=== PATIENT | female | born 1970 | race Caucasian/White ===

== ENCOUNTER 2019-06-20 09:59 | Outpatient (CLI) | payer OTHER, SELFPAY ==
[2019-06-23 06:05] LABS: H pylori Ag Stool Not Detected (Not Detected)
== END 2019-06-20 10:00 | disposition home or self-care (01) ==
LOC: ANHLAB 10:01
PROVIDERS: PCP Internal Medicine Hematology & Oncology; Visit Provider Internal Medicine Gastroenterology
DX: A04.8 Other specified bacterial intestinal infections (principal)
CPT/HCPCS: 87338

== ENCOUNTER 2024-09-21 20:59 | Emergency (ER) | payer OTHER, SELFPAY ==
--- NOTE | ~2024-09-21 | XR_ITS ---
XR chest 2V Ordering provider: Richy Durán MD History: 53 years Female with . CHEST PAIN x 2 dats . Comparison: None. FINDINGS: MEDIASTINUM: The cardiac silhouette is not enlarged. LUNGS: No infiltrates, effusions or pneumothorax. OTHER: No free air under the diaphragm. Multiple level of loss of volume of the vertebrae most likely chronic. Multilevel degenerative disc disease. Pectus excavating. IMPRESSION: No acute cardiopulmonary pathology. Reviewed, dictated and finalized at location A.
--- OUTSIDE RECORDS SUMMARY | 2024-09-21 21:02 | XMS_ITS | Continuity of Care Document ---
Author Organization [facility] [place] Address [address] [facility] [address] [place] [address] Phone Care Team Providers Care Corporate Responsibility Officer Name Role Phone Dale Carrillo MD, FACS Unavailable Unavailab le Procedures Procedure Date Office/outpatient Visit, Est Corneal Pachymetry Corneal Topography Eye Exam & Treatment Refraction Eye Exam, New Patient Advance Directives Directive Yes / No Effective Date File Name No Information Encounters Encounter Description Practice Location Reason(s) For Visit Diagnoses Date Provider Providers Copied on Encounter Office/outpat ient Visit, Est [facility], [address] [place] [address] [address], [place], [place], [id number], [place] tel:[phone] SEC Kelsey Berrios No Information 0 Gerardo Hunter. [address] [place] [address], [facility] [address], [place], [place], [id number], [place]. tel:[phone] Referring Provider: Nico Martin OD [place], [facility] [address], [place], [address]. tel:[phone] [facility], [address] [place] [address] [address], [place], [place], [id number], [place] tel:[phone] SEC [facility] No Information 0 Martin OD Nico. [address] , [address], [place], [address], [place]. tel:[phone] [facility], [address] [place] [address] [address], [place], [place], [id number], [place] tel:[phone] [facility] No Information [phone] Martin OD Nico. [address] [facility] , [address], [place], [address], [place]. tel:[phone] Family History Family Member Type Diagnosis Age At Onset No Information Payers Payer name Insurance type Covered republican ID Jluis moseley(s) Medicaid [facility] [id number] Social History Type Description Quantity Date Captured Comments Sex Female Smoking Status No Information Chief Complaint And Reason For Visit No Information Reason For Referral Reason For Referral No Information History Of Present Illness Encounter Date Complaint History Of Prese nt Illness No Information Functional Status Date Functional Assessmen t No Information Instructions Date Instruction Additional Infor mation No Information Assessments Type Assessment Date No Information Patient Care Teams Name Effective Dates (start - stop) Status Members No Information
--- OUTSIDE RECORDS SUMMARY | 2024-09-21 21:02 | XMS_ITS | CONTINUITY OF CARE DOCUMENT ---
Author Name elhamroxana rico Address Unknown Organization [facility] Address [address] [facility] [address] [place] [address] Phone [phone] Care Team Providers Care Tool Grinding Technician Name Role Phone Ubaldo Farias MD Unavailable [phone] DALY ORONA MD Unavailable [phone] DALY ORONA MD Unavailable [phone] PROBLEMS Condition Status Date Provider Notes Obesity active Ubaldo Farias MD Preoperative cardiovascular examination active Ubaldo Farias MD Cardiovascular screening active Ubaldo gerardo MD Family history of CAD active Ubaldo Farias MD Former smoker active Ubaldo Farias MD ENCOUNTERS Date Type Provider Location Encounter Diag nosis - In-person encounter Office Visit Ubaldo Farias MD [facility] ObesityPreoperative cardiovascular examinationCardiovascular screeningFamily history of CADFormer smoker VITAL SIGNS Date Observation Value Provider Body Mass Index (Ratio) 40.97 kg/m2 Josephine Farias MD blood pressure, diastolic 78 mm[Hg] Pinky greenLograj blood pressure, systolic 109 mm[Hg] Catalina Kevin respiratory rate E&M 20 /min Shannon Gleason pulse rate 85 /min Shannon Gleason oxygen saturation, oximetry 94 % Shannon Gleason blood pressure, diastolic 78 mm[Hg] Wayne Gleason blood pressure, systolic 109 mm[Hg] She estrada Gleason blood pressure, cuff size regular Sh beckie Gleason weight E&M 235 [lb_av] Shannon Gleason height E&M 63.5 [in_i] Shannon Gleason ALLERGIES Allergy Name Onset Date Reaction Criticality Status TRAMADOL Low Criticality active DEMEROL swelling High Criticality active AZITHROMYCIN High Criticality active PENICILLIN High Criticality active HISTORY OF MEDICATION USE Medication Status Instructions Dates Provider Indications Com ments Latuda 20 mg tablet active Shannon Gleason vilazodone 40 mg tablet active Shannon Gleason Latuda 80 mg tablet active Shannon Gleason clonazepam 0.5 mg tablet active Shannon Gleason SOCIAL HISTORY Date Observation Value Provider social history E&M S moking History: P keyona has never smoked. Ubaldo Farias MD social history reviewed E&M revi ewed - no changes required Ubaldo Farias MD number of grandchildren Ubaldo Farias MD smoking status Never smoker Shannon Gleason INSURANCE PROVIDERS Payer name Policy type / Coverage type [place] red green party ID [employer]ISHA MEDICAID (2) Medicaid [id number] ADVANCE DIRECTIVES Name Date DISCUSSED - NO DECISION MADE TREATMENT PLAN Date Name Performer [id number],S, Ubaldo Barker ra, [place] [id number],CUbaldo ra, MD [id number],S, Ubaldo Barker ra, [place] [id number],SUbaldo ra, MD Cardiology Ubaldo Dunne Cardiology Ubaldo Dunne Cardiology Ubaldo Dunne Cardiology Ubaldo Dunne
--- OUTSIDE RECORDS SUMMARY | 2024-09-21 21:02 | XMS_ITS | Data Portability ---
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 Plan of Treatment Reminders Order Date Submit Date Provider Last Modified By Organization Details Last Modified Time Details Appointments ANY 30 2024 04:00P M JACQUI OG PA-C Not available Not available Not available Lab None recorded. Referral None recorded. Procedures None recorded. Surgeries excision of soft tissue mass (SURG) 2024 025 [facility] (Surgery Sched), [address] [place], [address], 06/19/2024 08:48:39 Imaging None recorded. Medication Orders Bactrim DS 800 mg-160 mg tablet 2024 025 [id number], [address] [place], [place], [id number], 09/04/2024 16:06:24 permethri n 5 % topical cream 2024 025 [id number], [address] [place], [place], [id number], 05/21/2024 17:43:05 cephalexi n 500 mg capsule 2024 025 [id number], [address] [place], [place], [id number], 05/21/2024 17:43:03 Patient TargetsNo targets recorded. Patient Instructions Encounter Date Encounter Id Patient Instructions Last Modified By Organization Details Last Modified Time 05/21/2024 [id number] A healthy lifestyle: care instructions [email or web address] Not available 05/21/2024 17:42:58 Reason for Referral None Reported. Results Created Date Observation Date Name Description Value Unit Range Abnormal Flag Note LastModifiedBy Organization Detail LastModifiedTime 05/24/1905/24/2024 US, lower extre mity, nonva scula r No observ ation record ed. [facility] [address] [facility], [place], [address], 06/05/2024 16:39:03 Result Notes None recorded. Problems Name Problem SNOMED Code Status Onset Date Resolution Date Notes Provider Name and Address Organization Details Recorded Time Derangement of medial meniscus 017478791 Active 2016 Not Available [facility] 3 15:01:32 Pain in right knee Active 2016 Not Available [facility] 3 15:01:32 Kidney stone 55563550 Active 2018 Not Available [facility] 3 15:01:32 Hyperlipidemi a 19359303 Active 2023 JACQUI OG PA-C Attn: Accounting ,[address] [place], [address] , [facility] 4 16:28:31 Osteoarthriti s of knee 635131189 Active Not Available [facility] 3 15:01:32 Calcaneal spur 75078022 Active Not Available [facility] 3 15:01:32 Chronic obstructive pulmonary disease 72999424 Active Not Available [facility] 3 15:01:32 Pain of breast 37199432 Active Not Available [facility] 3 15:01:32 Menorrhagia 343326184 Active Not Available [facility] 3 15:01:32 Candidiasis of vagina 72879931 Active Not Available [facility] 3 15:01:32 Chronic instability of knee 191517102 Active Not Available [facility] 3 15:01:32 Hypertensive disorder 47782987 Active Not Available [facility] 3 15:01:32 Pain in left knee Active Not Available [facility] 3 15:01:32 Skin lesion 85413569 Active Not Available [facility] 3 15:01:32 Chronic diarrhea 658252200 Active Not Available [facility] 3 15:01:32 Knee joint painful on movement 681497927 Active Not Available [facility] 3 15:01:32 Chondromalaci a of patella 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 Active Not Available [facility] 3 15:01:32 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 Not Available [facility] 3 15:01:32 Morbid obesity 012391619 Active Not Available [facility] 3 15:01:32 Diarrhea 07172415 Active Not Available [facility] 3 15:01:32 Paresthesia of upper limb 35999360 Active Not Available [facility] 3 15:01:32 Helicobacter pylori-associ ated gastritis 432506575 Active Not Available [facility] 3 15:01:32 Chronic abdominal pain 563079686 Active 2015 Not Available [facility] 3 15:01:32 Pain in limb 57914066 Active Not Available [facility] 3 15:01:32 Tobacco dependence syndrome 30474865 Active Not Available [facility] 3 15:01:32 Swelling of limb 75191061 Active Not Available [facility] 3 15:01:32 Problem Notes None recorded. Procedures Surgical History Date Name Laterality Status Provider Name and Address Organization Details Recorded Time 06/19/19 25 EXCISION OF SOFT TISSUE MASS (SURG) completed JACQUI OG PA-C Attn: Accounting,[address] [place] [address], [id number], [facility] 07/01/2024 15:07:53 06/19/19 25 EXCISION OF SOFT TISSUE MASS (SURG) completed Fitz Ramos MD [address] [place], [address], [place] [facility] 06/20/2024 15:12:10 01/10/20 24 Date of Last Pap Smear completed Shanna Nevarez [place] [facility] 01/10/2024 11:24:21 05/01/19 24 Gastric Bypass completed [place] Stone [place] [facility] 06/30/2023 11:31:44 04/07/20 22 Date of Last Mammogram [place] 02/13/2023 12:23:53 09/30/19 18 Most Recent Mammogram [place] 01/13/2020 12:12:40 03/13/20 17 Right Arthrocentesis Major Joint completed Fan Thomas MD [address] [place], [address], [place] [facility] 03/13/2017 14:47:18 07/08/19 17 Control Implant Removal completed [place] 07/07/2016 10:36:39 01/07/20 16 Colonoscopy with biopsy completed [place] Stone [place] 05/03/2016 10:54:59 07/09/19 16 Control Implant Insertion [place] Prem [place] 07/09/2015 17:48:54 07/09/19 14 Endometrial Biopsy completed [place] Stone [place] 05/03/2016 10:55:43 04/24/19 08 Other completed Tho Santamaria [place] [facility] 01/14/2016 11:51:58 01/04/19 93 Caesarean Section completed Rosemary Honeycutt [place] 01/04/2017 11:47:08 07/05/18 90 Caesarean Section completed Rosemary Honeycutt [place] [facility] 01/04/2017 11:46:26 Imaging Results None recorded. Procedure Notes None recorded. Medical Equipment None Reported. Allergies Allergen ID Allergen Name Allergen Category Reaction Reaction Severity Criticality Documentation Date Start Date Code Code System Note Provider Name and Address Organization Details Recorded Time [id number] Levaquin medicatio n anaphylax is severe Not available 07/17/2018 24853 2 RxNorm BrittanyCONSTANZA Hickman [place] [facility] 9 14:41:24 181565 Wellbutri n medicatio n anaphylax is rash severe Not available Not available 07/25/2018 49961 RxNorm May Stone [place], [place] [facility] 9 15:22:22 019787 metformin medicatio n Not available Not available Not available 10/12/2018 6809 RxNorm Claudia Cruz [place], [place] [facility] 9 15:24:33 953332 gabapenti n medicatio n other severe Not available 07/02/2020 80950 RxNorm 07/02 pt state s cause d blist er over whole body, cb- a May Stone [place], [place] [facility] 1 13:32:40 31383 Demerol medicatio n anaphylax is severe Not available 06/10/2016 98582 1 RxNorm May Stone [place], [place] [facility] 7 10:58:09 36516 Product containin g penicilli n (product) medicatio n anaphylax is severe Not available 06/10/2016 05517 8001 SNOMED May Stone [place], [place] [facility] 7 10:58:26 71684 erythromy emma medicatio n anaphylax is severe Not available 06/10/2016 4053 RxNorm May Stone [place], [place] [facility] 7 10:59:00 30598 Nexplanon medicatio n diarrhea severe Not available 09/07/2016 07290 08 RxNorm Geeta Rodriguez [place], [place] [facility] 7 11:47:23 Medications Name Sig Start Date Stop Date Status Note LastModified by Organization Details LastModified Time Prescript ion - New 01/28 completed Not Available Not Available Not Available Prescript ion - Prior Authoriza tion Request 01/28 completed Not Available Not Available Not Available multivita min tablet TAKE 2 TABLETS BY MOUTH ONCE DAILY active Not Available Not Available No t Available tetracycl ine 500 mg capsule 06/28 completed Not Available Not Available Not Available fluoxetin e 40 mg capsule 06/29 completed Not Available Not Available Not Available cyclobenz aprine 10 mg tablet TAKE 1 TABLET BY MOUTH TWICE DAILY 01/29 completed Not Available Not Available Not Available methocarb arnaldo 500 mg tablet Take 2 tablets 3 times a day by oral route for 30 days. active Not Available Not Available No t Available lamotrigi ne 150 mg tablet 09/07 completed Not Available Not Available Not Available metformin 500 mg tablet Take 1 tablet twice a day by oral route. 10/16 completed Not Available Not Available Not Available doxepin 50 mg capsule 09/07 completed Not Available Not Available Not Available hydrocodo ne 7.5 mg-ibupro fen 200 mg tablet Take 1 tablet twice a day by oral route as needed for 15 days. 01/04 completed Not Available Not Available Not Available Qvar 80 mcg/actua tion Metered Aerosol oral inhaler Inhale 2 puffs twice a day by inhalati on route. 09/07 completed Not Available Not Available Not Available bupropion HCl SR 150 mg tablet,12 hr sustained -release Take 1 tablet twice a day by oral route. 07/17 completed Not Available Not Available Not Available venlafaxi ne ER 37.5 mg capsule,e xtended release 24 hr Take 1 capsule every day by oral route. 01/28 completed Not Available Not Available Not Available prednison e 10 mg tablet 06/29 completed Not Available Not Available Not Available gabapenti n 600 mg tablet 05/16 completed Not Available Not Available Not Available doxycycli ne hyclate 100 mg capsule Take 1 capsule twice a day by oral route as directed for 7 days. 01/29 completed Not Available Not Available Not Available nicotine 14 mg/24 hr daily transderm al patch Apply 1 patch every day by transder mal route as directed for 30 days. 05/16 completed Not Available Not Available Not Available clindamyc in HCl 300 mg capsule TAKE 2 CAPSULES BY MOUTH TWICE DAILY FOR 10 DAYS 01/29 completed Not Available Not Available Not Available albuterol sulfate 2.5 mg/3 mL (0.083 %) solution for nebulizat ion 09/07 completed Not Available Not Available Not Available trazodone 50 mg tablet 01/28 completed Not Available Not Available Not Available ibuprofen 800 mg tablet TAKE 1 TABLET BY MOUTH TWICE DAILY FOR 10 DAYS 01/29 completed Not Available Not Available Not Available fluconazo le 150 mg tablet Take 1 tablet by oral route for 1 day. 07/02 completed Not Available Not Available Not Available sulfameth oxazole 400 mg-trimet hoprim 80 mg tablet 06/28 completed Not Available Not Available Not Available doxepin 25 mg capsule 10/16 completed Not Available Not Available Not Available methylphe nidate 10 mg tablet active Not Available Not Available No t Available clarithro mycin 500 mg tablet Take 1 tablet twice a day by oral route for 14 days. 09/07 completed Not Available Not Available Not Available hydrocodo ne 5 mg-acetam inophen 325 mg tablet Take 1 tablet every 6 hours by oral route as needed for 5 days. 01/28 completed Not Available Not Available Not Available methylphe nidate 20 mg tablet active Not Available Not Available No t Available Celestone Soluspan 6 mg/mL suspensio n for injection Take 2 mL by injectio n route. 05/16 completed Not Available Not Available Not Available prazosin 1 mg capsule active Not Available Not Available Not Available sucralfat e 1 gram tablet Take 1 tablet 4 times a day by oral route as needed for 30 days. 09/07 completed Not Available Not Available Not Available carbamaze pine ER 100 mg tablet,ex tended release,1 2 hr 01/28 completed Not Available Not Available Not Available naltrexon e 50 mg tablet Take 0.5 tablets twice a day by oral route. 07/17 completed Not Available Not Available Not Available metronida zole 0.75 % (37.5 mg/5 gram) vaginal gel active Not Available Not Available Not Available ondansetr on HCl 4 mg tablet 01/29 completed Not Available Not Available Not Available prednison e 20 mg tablet 12/12 completed Not Available Not Available Not Available clonazepa m 0.5 mg tablet active Not Available Not Available Not Available gabapenti n 400 mg capsule TAKE 2 CAPSULE( S) TWICE A DAY BY ORAL ROUTE DIRECTED FOR PAIN MANAGEME NT active Not Available Not Available No t Available terconazo le 0.8 % vaginal cream Insert 1 applicat orful every day by vaginal route for 3 days. 06/28 completed Not Available Not Available Not Available metronida zole 250 mg tablet 01/12 completed Not Available Not Available Not Available clonazepa m 1 mg tablet 01/12 completed Not Available Not Available Not Available Zithromax Z-Adolfo 250 mg tablet TAKE 2 TABLETS (500 MG) BY ORAL ROUTE ONCE DAILY FOR 1 DAY THEN 1 TABLET (250 MG) BY ORAL ROUTE ONCE DAILY FOR 4 DAYS 2015 active Not Available Not Available Not Avai lable permethri n 5 % topical cream APPLY (THOROUG HLY MASSAGE INTO SKIN FROM HEAD TO SOLES OF FEET) BY TOPICAL ROUTE ONCE LEAVE ON FOR 8-14 HR, THEN REMOVE BY THOROUGH WASHING active Not Available Not Available No t Available penicilli n V potassium 500 mg tablet active Not Available Not Available Not Available metronida zole 500 mg tablet TAKE ONE TABLET BY MOUTH EVERY TWELVE HOURS AFTER MEALS FOR 7 DAYS FOR INFECTIO N 01/29 completed Not Available Not Available Not Available doxepin 10 mg capsule 09/07 completed Not Available Not Available Not Available ciproflox acin 500 mg tablet active Not Available Not Available No t Available sulfameth oxazole 800 mg-trimet hoprim 160 mg tablet TAKE 1 TABLET BY MOUTH TWICE DAILY active Not Available Not Available No t Available omeprazol e 40 mg capsule,d elayed release 01/12 completed Not Available Not Available Not Available tramadol 50 mg tablet Take 1 tablet every 6 hours by oral route. 06/28 completed Not Available Not Available Not Available amitripty line 50 mg tablet active Not Available Not Available No t Available acetamino phen 500 mg tablet TAKE 2 TABLETS BY MOUTH EVERY 8 HOURS active Not Available Not Available No t Available risperido ne 3 mg tablet 01/12 completed Not Available Not Available Not Available triamcino lone acetonide 0.1 % topical cream APPLY TO THE AFFECTED AREA(s) TWICE DAILY EVERY MORNING & EVENING active Not Available Not Available No t Available spironola ctone 25 mg tablet Take 1 tablet every day by oral route. 09/07 completed Not Available Not Available Not Available butalbita l-acetami nophen-ca ffeine 50 mg-325 mg-40 mg tablet Take 1 tablet every day by oral route as directed for 30 days. 04/30 completed Not Available Not Available Not Available lamotrigi ne 25 mg tablet 10/07 /2019 completed Not Available Not Available Not Available ketorolac 10 mg tablet Take 1 tablet every 6 hours by oral route as directed for 5 days. 01/28 completed Not Available Not Available Not Available cyprohept adine 4 mg tablet active Not Available Not Available No t Available risperido ne 2 mg tablet 01/12 completed Not Available Not Available Not Available meloxicam 7.5 mg tablet active Not Available Not Available Not Available oxycodone -acetamin ophen 5 mg-325 mg tablet active Not Available Not Available Not Available amitripty line 25 mg tablet 06/28 completed Not Available Not Available Not Available prednisol one acetate 1 % eye drops,kathy pension INSTILL 1 DROP IN LEFT EYE EVERY DAY 06/28 completed Not Available Not Available Not Available temazepam 15 mg capsule 10/16 completed Not Available Not Available Not Available cyanocoba bishop (vit B-12) 500 mcg tablet TAKE 1 TABLET BY MOUTH ONCE DAILY active Not Available Not Available No t Available tamsulosi n 0.4 mg capsule TAKE 1 CAPSULE BY MOUTH EVERY NIGHT 06/28 completed Not Available Not Available Not Available dicyclomi ne 20 mg tablet Take 1 tablet 3 times a day by oral route. 07/02 completed Not Available Not Available Not Available temazepam 30 mg capsule 01/28 completed Not Available Not Available Not Available carbamaze pine ER 200 mg tablet,ex tended release,1 2 hr 01/28 completed Not Available Not Available Not Available baclofen 10 mg tablet Take 1 tablet 3 times a day by oral route after meals for 30 days. 12/12 completed Not Available Not Available Not Available amlodipin e 10 mg tablet Take 1 tablet every day by oral route for 30 days. 09/07 completed Not Available Not Available Not Available doxycycli ne monohydra te 100 mg capsule 01/28 completed Not Available Not Available Not Available hydrocodo ne 7.5 mg-acetam inophen 325 mg tablet 01/28 completed Not Available Not Available Not Available cephalexi n 500 mg capsule TAKE 1 CAPSULE BY MOUTH EVERY 12 HOURS FOR 7 DAYS active Not Available Not Available No t Available pantopraz ole 40 mg tablet,de layed release 01/12 completed Not Available Not Available Not Available metformin 1,000 mg tablet Take 1 tablet twice a day by oral route. 06/07 completed Not Available Not Available Not Available nystatin 100,000 unit/gram topical cream APPLY TO THE AFFECTED AREA(S) BY TOPICAL ROUTE 2 TIMES PER DAY 06/29 completed Not Available Not Available Not Available calcipotr iene 0.005 % topical cream Apply 2-3 gm to affected area 3-4 times daily as directed . 07/02 completed Not Available Not Available Not Available ranitidin e 150 mg tablet 01/28 completed Not Available Not Available Not Available prednison e 50 mg tablet 01/28 completed Not Available Not Available Not Available hyoscyami ne 0.125 mg sublingua l tablet 01/29 completed Not Available Not Available Not Available promethaz ine 25 mg tablet 04/30 completed Not Available Not Available Not Available nicotine 21 mg/24 hr daily transderm al patch APPLY 1 PATCH DAILY ALTERNAT ING SITE OF APPLICAT ION WITH EACH PATCH 01/12 completed Not Available Not Available Not Available fluoxetin e 10 mg capsule 06/28 completed Not Available Not Available Not Available gabapenti n 300 mg capsule Take 1 capsule 3 times a day by oral route as directed for 30 days. 12/12 completed Not Available Not Available Not Available sertralin e 25 mg tablet active Not Available Not Available Not Available omeprazol e 20 mg capsule,d elayed release Take 1 capsule twice a day by oral route for 14 days. 01/29 completed Not Available Not Available Not Available Replens vaginal gel Insert 1 g twice a day by vaginal route. 09/07 completed Not Available Not Available Not Available bisacodyl 5 mg tablet,de layed release 09/07 completed Not Available Not Available Not Available mupirocin 2 % topical ointment APPLY TO THE AFFECTED AREA OF EACH NOSTRIL TWICE DAILY FOR 7 DAYS active Not Available Not Available No t Available lorazepam 1 mg tablet 09/07 completed Not Available Not Available Not Available ibuprofen 600 mg tablet active Not Available Not Available Not Available polyethyl carlos glycol 3350 17 gram/dose oral powder 01/29 completed Not Available Not Available Not Available levofloxa emma 500 mg tablet Take 1 tablet every 24 hours by oral route after meals for 7 days. 07/17 completed Not Available Not Available Not Available oxycodone -acetamin ophen 7.5 mg-325 mg tablet active Not Available Not Available Not Available scopolami ne 1 mg over 3 days transderm al patch PL[address] 1 PATCH ON THE SKIN BEHIND EAR AT 8 PM THE NIGHT BEFORE SURGERY 01/29 completed Not Available Not Available Not Available methylpre dnisolone 4 mg tablets in a dose pack 05/16 completed Not Available Not Available Not Available Vitamin D2 1,250 mcg (50,000 unit) capsule 06/28 completed Not Available Not Available Not Available Zoloft 100 mg tablet Take 1 tablet every day by oral route. 05/16 completed Psychiat rist Ms Amy jimenez said she is on 100 of zoloft and she is going to stop it and said ok to start venlafax in Not Available Not Available Not Available Cipro 250 mg tablet Take 1 tablet every 12 hours by oral route for 14 days. 09/07 completed Not Available Not Available Not Available oxybutyni n chloride 5 mg tablet active Not Available Not Available Not Available ondansetr on 4 mg disintegr ating tablet 01/12 completed Not Available Not Available Not Available etodolac 500 mg tablet 04/30 completed Not Available Not Available Not Available fluoxetin e 20 mg capsule 06/28 completed Not Available Not Available Not Available sertralin e 50 mg tablet 05/16 completed Not Available Not Available Not Available risperido ne 1 mg tablet 06/28 completed Not Available Not Available Not Available dicyclomi ne 10 mg capsule 01/28 completed Not Available Not Available Not Available lamotrigi ne 100 mg tablet 09/07 completed Not Available Not Available Not Available risperido ne 0.5 mg tablet 01/12 completed Not Available Not Available Not Available naproxen 500 mg tablet Take 1 tablet twice a day by oral route after meals for 30 days. 01/28 completed Not Available Not Available Not Available difloraso ne 0.05 % topical ointment Apply 2-3 gms to affected area(s) 3-4 times daily (1 gm = 1 dime size). 01/12 completed Not Available Not Available Not Available amoxicill in 875 mg-potass ium clavulana te 125 mg tablet 09/07 completed Not Available Not Available Not Available nicotine 7 mg/24 hr daily transderm al patch Apply 1 patch every day by transder mal route around the clock for 30 days. 05/16 completed Not Available Not Available Not Available Ventolin HFA 90 mcg/actua tion aerosol inhaler Inhale 2 puffs every 4 hours by inhalati on route for 30 days. 12/12 completed Not Available Not Available Not Available oxycodone 5 mg tablet 01/29 completed Not Available Not Available Not Available hydroxyzi ne pamoate 25 mg capsule active Not Available Not Available Not Available Benadryl 25 mg capsule Take 1 capsule every 4 hours by oral route. 04/30 completed Not Available Not Available Not Available aripipraz ole 10 mg tablet 07/02 completed Not Available Not Available Not Available nicotine 21mg/24hr -14mg/24h r-7mg/24h r daily transderm patches,s equentl Apply 1 patch every day by transder mal route for 90 days. 09/07 completed Not Available Not Available Not Available cholestyr amine (with sugar) 4 gram oral powder Take 1 scoop twice a day by oral route as needed for 30 days. 09/07 completed Not Available Not Available Not Available nitrofura ntoin monohydra te/macroc rystals 100 mg capsule TAKE 1 CAPSULE BY MOUTH EVERY 12 HOURS active Not Available Not Available No t Available duloxetin e 30 mg capsule,d elayed release 04/30 completed Not Available Not Available Not Available duloxetin e 60 mg capsule,d elayed release active Not Available Not Available Not Available carbamaze pine ER 100 mg capsule,e xtended release [id number] 09/07 completed Not Available Not Available Not Available Lyrica 75 mg capsule Take 1 capsule twice a day by oral route for 30 days. 09/07 completed 4 boxes of sample 75 mg , lyrica with instruct ions and 1 coupon.L [id number] 2. EXP. 12/23/19 22. Not Available Not Available Not Available Lyrica 100 mg capsule TAKE ONE CAPSULE BY MOUTH THREE TIMES DAILY active Not Available Not Available No t Available Soothe (bismuth subsalicy late) 262 mg tablet 06/28 completed Not Available Not Available Not Available aprepitan t 40 mg capsule TAKE 1 CAPSULE BY MOUTH ONCE AT 8PM THE NIGHT BEFORE SURGERY 01/29 completed Not Available Not Available Not Available Oysco 500/D 500 mg-5 mcg (200 unit) tablet 09/07 completed Not Available Not Available Not Available Acid Ramp Service Agent (famotidi ne) 20 mg tablet Take 1 tablet twice a day by oral route as directed for 30 days. 04/30 completed Not Available Not Available Not Available Symbicort 160 mcg-4.5 mcg/actua tion HFA aerosol inhaler INHALE 2 PUFFS BY MOUTH TWICE DAILY active Not Available Not Available No t Available omeprazol e 20 mg tablet,de layed release 09/07 completed Not Available Not Available Not Available Citracal- D3 Petites 200 mg (as citrate)- 6.25 mcg (250 unit) tablet TAKE 2 TABLETS BY MOUTH THREE TIMES DAILY active Not Available Not Available No t Available [place] Calcium 200 mg-Vitami n D3 6.25 mcg (250 unit) tablet TAKE 2 TABLETS BY MOUTH 3 (THREE) TIMES A DAY START POST-HAYLEE DESHAWN 01/29 completed Not Available Not Available Not Available Latuda 40 mg tablet 07/02 completed Not Available Not Available Not Available lurasidon e 80 mg tablet active Not Available Not Available Not Available vilazodon e 40 mg tablet active Not Available Not Available Not Available Nexplanon 68 mg subdermal implant Inject 1 implant by subcutan eous route. 09/07 completed Not Available Not Available Not Available Metamucil Sugar-Samm e (aspartam e) 3.4 gram/5.8 gram oral powder 09/07 completed Not Available Not Available Not Available lurasidon e 20 mg tablet active Not Available Not Available Not Available calcium 600 mg (as carbonate )-vitamin D3 20 mcg (800 unit) tablet Take 1 tablet twice a day by oral route for 30 days. 07/17 completed Not Available Not Available Not Available Fioricet 50 mg-300 mg-40 mg capsule Take 1 capsule 3 times a day by oral route as directed for 10 days. 04/30 completed Not Available Not Available Not Available Latuda 60 mg tablet Take 1 tablet every day by oral route. 06/28 completed Not Available Not Available Not Available Virtussin AC 10 mg-100 mg/5 mL oral liquid 05/16 completed Not Available Not Available Not Available Contrave 8 mg-90 mg tablet,ex tended release Take 2 tablets twice a day by oral route. 12/12 completed Not Available Not Available Not Available Metamucil 3.4 gram/5.4 gram oral powder Take 3.4 g every day by oral route. 09/07 completed Not Available Not Available Not Available Viberzi 75 mg tablet TAKE ONE TABLET BY MOUTH TWO TIMES DAILY 09/07 completed Not Available Not Available Not Available Vitals Date Recorded Body height Body mass index (BMI) Body weight Body temperature Oxygen saturation Oxygen saturation in Arterial blood by Pulse oximetry Heart rate Systolic blood pressure Diastolic blood pressure Provider Name and Address Organization Details Last Updated DateTime 5 161.29 cm 34.8 kg/m2 01652.3 2 g 98 [degF] 95 % 95 % 75 /min 124 mm[Hg] 74 mm[Hg] Nevin Manuel [place] [facility] 5 17:24:59 Date Recorded Body height Respiratory rate Oxygen saturation Oxygen saturation in Arterial blood by Pulse oximetry Heart rate Body temperature Body mass index (BMI) Body weight Systolic blood pressure Diastolic blood pressure Provider Name and Address Organization Details Last Updated DateTime 5 161.29 cm 18 /min 95 % 95 % 62 /min 96.4 [degF] 33.7 kg/m2 16549.1 2 g 109 mm[Hg] 41 mm[Hg] Marky Kellogg [place] [facility] 5 14:30:04 Date Recorded Body height Oxygen saturation Oxygen saturation in Arterial blood by Pulse oximetry Heart rate Respiratory rate Body mass index (BMI) Body weight Systolic blood pressure Diastolic blood pressure Provider Name and Address Organization Details Last Updated DateTime 5 161.29 cm 94 % 94 % 85 /min 18 /min 33.6 kg/m2 04728.6 1 g 113 mm[Hg] 43 mm[Hg] Marky Kellogg MA [facility] 5 10:43:23 Date Recorded Body height Respiratory rate Oxygen saturation Oxygen saturation in Arterial blood by Pulse oximetry Heart rate Body mass index (BMI) Body weight Systolic blood pressure Diastolic blood pressure Provider Name and Address Organization Details Last Updated DateTime 5 161.29 cm 18 /min 93 % 93 % 73 /min 33 kg/m2 12745.9 6 g 123 mm[Hg] 84 mm[Hg] Marky Kellogg MA [facility] 5 11:10:10 Date Recorded Systolic blood pressure Diastolic blood pressure Provider Name and Address Organization Details Last Updated DateTime 09/04/2024 160 mm[Hg] 90 mm[Hg] Shanna Nevarez MA [facility] 09/04/2024 16:22:48 Date Recorded Body height Body mass index (BMI) Body weight Oxygen saturation Oxygen saturation in Arterial blood by Pulse oximetry Heart rate Systolic blood pressure Diastolic blood pressure Provider Name and Address Organization Details Last Updated DateTime 5 161.29 cm 32.6 kg/m2 02422.7 7 g 97 % 97 % 101 /min 158 mm[Hg] 100 mm[Hg] May Stone MA [facility] 5 15:40:09 Social History Question Answer Notes LastModified by Organizat ion Details LastModified Time Tobacco Smoking Status Former Smoker stopped smoking 04/23/2016 ; Nevin Manuel MA [facility], [facility] 01/30/2024 11:14:43 Do You Have An Advance Directive? No Information not available 07/09/2015 Are You Blind Or Do You Have Difficulty Seeing? No Information not available 05/25/2023 Is Blood Transfusion Acceptable In An Emergency? Yes Information not available 07/09/2015 What Is Your Level Of Caffeine Consumption? Occasional Information not available 06/29/2022 How Much Tobacco Do You Chew? None Information not available 07/09/2015 Are You Deaf Or Do You Have Serious Difficulty Hearing? No Information not available 05/25/2023 What Type Of Diet Are You Following? SPECIFIC Information not available 05/25/2023 Which Illicit Or Recreational Drugs Have You Used? Marijuana Information not available 07/02/2020 Education 9 Information no t available 07/09/2015 What Is The Highest Grade Or Level Of School You Have Completed Or The Highest Degree You Have Received? [id number] Information not available 05/25/2023 Live Alone Or With Others? Alone [email or web address] Information not available 07/02/2018 What Was The Date Of Your Most Recent Tobacco Screening? 07/29/2024 Information not available 07/29/2024 How Many Children Do You Have? 2 Brandin @ Age 1 [email or web address] Information not available 01/04/2017 What Is Your Current Pack Years? 10-19packyears Information not available 07/02/2020 Performs Monthly Self-breast Exam? Yes Information not available 07/09/2015 Do You Use Protection During Sex? Always Information not available 07/09/2015 What Is Your Relationship Status? Information not available 07/09/2015 Do You Use Your Seat Belt Or Car Seat Routinely? Yes Information not available 07/02/2020 Seat Belts Used Routinely Yes Information not available 07/09/2015 Are You Sexually Active? Yes Information not available 07/09/2015 Do You Have Smoke And Carbon Monoxide Detectors In Your Home? Yes Information not available 07/02/2020 At What Age Did You Start Smoking Tobacco? 14 Information not available 07/09/2015 Are You Passively Exposed To Smoke? No Information not available 07/02/2020 How Much Tobacco Do You Smoke? No [email or web address] Information not available 01/30/2024 General Stress Level Low Information not available 09/07/2016 Do You Use Sunscreen Routinely? Yes Information not available 07/09/2015 Has Tobacco Cessation Counseling Been Provided? No Information not available 06/29/2022 On What Date Was Tobacco Cessation Counseling Provided? 07/29/2024 Information not available 07/29/2024 How Many Years Have You Smoked Tobacco? 10 Information not available 07/09/2015 Sex: Female Functional Status Question Answer Note LastModified by Organizat ion Details LastModified Time Do you use any illicit or recreational drugs? Yes Information not available 07/02/2020 Do you or have you ever used any other forms of tobacco or nicotine? No Information not available 07/02/2020 What is your level of alcohol consumption? None Information not available 07/09/2015 Do you or have you ever used smokeless tobacco? Never used smokeless tobacco Information not available 01/13/2020 Are you currently employed? No Information not available 07/09/2015 Are you able to care for yourself? Yes Information not available 05/25/2023 What is your occupation? disabled Information not available 07/09/2015 Do you or have you ever used e-cigarettes or vape? Never used electronic cigarettes Information not available 01/13/2020 What is your exercise level? Moderate Information not available 07/09/2015 Mental Status None recorded. Family History Relationship Description Onset Age of this Age Resolved Age Notes LastModified by Organization Details LastModified Time Mother Diabetes mellitus Not available 2016 11:47:59 Mother Myocardial infarction 52 Not available 09/07 11:48:59 Father Malignant neoplasm of lung Not available 2016 11:48:17 Father Myocardial infarction 56 Not available 09/07 11:48:43 Medical History Condition Response Coronary Artery Disease N Kidney Cyst N Blood Diseases N Hyperthyroidism N Blood Transfusion N MRSA N Blood disorders N Emphysema N Blood Clots N COPD N Depression N Pneumonia N Premature N Peripheral Arterial Disease N Edema N TIA N Headaches/Migraines N Anxiety Disorder N Obesity N Infertility N Polyps N Acid Reflux (GERD) N Hematuria N Stroke N Neck Injury N Polio N Hospital Admission other than N Neurologic Disorder N Other Sleep Disorders N Rheumatoid Arthritis N Fibromyalgia N Abdominal Aortic Aneurysm Repair N Kidney Disease N Heart Conditions N Heart Disease/Heart Problems N Hospitalizations N Brain Tumors N Acne N Skin Problems N Eating Disorder N Meningitis N Constipation N Tuberculosis N Cerebral Palsy N Myocardial Infarction N Asthma Y Substance Abuse N Peripheral Vascular Disease N Vertigo N Sleep Disorder N Cirrhosis N Pulmonary Embolism N Chicken Pox N Hematologic Disease N Flomax Use Past or Present N Anxiety/Depression N Thyroid Disease N Colon Cancer N Lung Disease N Glaucoma N Developmental or Behavioral Disorders N Bipolar N Pacemaker N Diverticulitis/Diverticulosis N Orthopedic Problems N Anesthesia Complications N Orthotics N Head Injury/Concussion N Congenital Anomalies N Lynn Bite N Chronic Kidney Disease N Endometriosis N Liver Disease N Schizophrenia N Dialysis N Speech Delay N Chronic Obstructive Pulmonary Disease N Parkinson's Disease N Thyroid Problems N GI Problems N Developmental Delay N Anemia N Multiple Sclerosis N Immune System Disorder N Colon Polyps N Heart Attack (ID) N Diabetes N Cardiomyopathy N Blood Transfusions N Heart Problems/Murmur N Eye Trauma N Congestive Heart Failure (CHF) N Valvular Heart Disease N Hyperlipidemia N Double Vision N Abuse/Domestic Violence N Hepatitis B N Lupus N Epilepsy/Seizures N Reflux/GERD N Aneurysm N Heart Disease N Bronchitis N Pre-Eclampsia N Hypertension N Heart Failure N Other N Gout N High Blood Pressure N Atrial Fibrillation N Kidney Stones N Head Trauma/Injury N Congenital Heart Disease N Spine Problems N Gastrointestinal Disease N Lung Mass N Sinusitis N Obstructive Sleep Apnea N Muscle, Joint, or Bone Problems Y Autoimmune disease N Vision or Eye Problems N Arthritis N Blood Clot N Cancer N Seasonal allergies N Leg or Foot Ulcers N Raynaud's Disease N Aortic Aneurysm N Arrhythmia N Headaches N Heart Problems N Ambloypia N Ear or Hearing Problems N Hyperparathyroidism N Migraines N Artificial Joints N Kidney or Bladder Problems N NSAID Use N Encephalitis N PTSD N Ulcers N Prostate Hypertrophy N Bleeding Disorder N AIDS/HIV N Urinary Tract Infection N Back Problems N Allergies N Atrial Flutter N GERD/Reflux N Hepatitis N Autism Spectrum Disorder (ASD) N Breast Cancer N Hernia N Hypothyroidism N Breast Problem N Genitourinary Disease N Deep Vein Thrombosis N Varicose Veins N Cystic Fibrosis N Hearing Loss N Developmental Problems N Carotid Disease N Vitamin D Deficiency N ADHD N Bladder or Kidney Problems N High Cholesterol N [place] N Valvular Abnormalities N Psychiatric/Mental Health Condition N Organ Transplant N Foot Deformity N Allergies/Hayfever N Dyslipidemia N Hyponatremia N Diabetic Eye Disease N Osteoporosis/Osteopenia N Back Pain N Proteinuria N Mental Illness N Neurological Problems N Ovarian Cancer N Bedwetting N Seizures/Epilepsy N Kidney Failure N Ocular trauma N Diverticulitis N Dementia N Sleep Apnea N Mental Problems N Warfarin Management N Osteoporosis N Gynecological History Statement/Question Response Abnormal Pap N Date of Last Mammogram 04/07/2022 On BCP's at Conception? N STIs/STDs N HPV Vaccine N Most Recent Mammogram 09/29/2017 Age at Menarche 11 Current Control Method Tubal Ligat ion If Post Menopausal, Age at Menopause 44 Sexually Active? Y Menses Monthly No Date of Last Pap Smear 01/10/2024 Sexual Problems? Y LMP Unknown Desired Control Method None Obstetrics History GPAL:G 2 P 2 0 0 2 Type Value Multiple Births 0 Full Term 2 Induced 0 Spontaneous 0 Premature 0 Living 2 Ectopics 0 Total 2 Immunizations Vaccine Type Date Status Note Provider Nam e and Address Organization Details Recorded Time COVID-19, mRNA, LNP-S, PF, 30 mcg/0.3 mL dose 12/01/2020 completed Not Available [facility] 3 15:01:32 COVID-19, mRNA, LNP-S, PF, 30 mcg/0.3 mL dose 12/21/2020 completed Not Available [facility] 3 15:01:32 Past Encounters Encounter ID Performer Location Encounter Start Date Encounter Closed Date Diagnosis/Indication Diagnosis SNOMED-CT Code Diagnosis ICD10 Code Diagnosis Note [id number] Arcelia Manriquez MD [facility] (Adult Med) [address] [place] [address] 34430-083 0 05/16/2014 12:01:22 05/16/2014 17:50:41 Pain in limb 83726735 Tobacco de pendence syndrome 02404060 Swelling of limb 28784969 [id number] Arcelia Manriquez MD [facility] (Adult Med) [address] [place] [address] [id number] 0 11/12/2014 09:42:05 11/12/2014 13:43:28 [id number] Arcelia Manriquez MD [facility] (Adult Med) [address] [place] [address] 68387-669 0 11/12/2014 10:36:32 2014 11:24:41 Osteoarthritis of knee 945997025 Calcaneal spur 47649494 Chronic ob structive pulmonary disease 81037451 Tobacco de pendence syndrome 60351419 [id number] Arcelia Manriquez MD [facility] (Adult Med) [address] [place] [address] [id number] 0 03/25/2015 15:46:06 03/25/2015 18:15:22 Calcaneal spur 34776337 M77.31 M77.32 Chronic ob structive pulmonary disease 05524525 J44.9 Osteoarthr itis of knee 345328924 M17.9 Screening mammography 24 913481 Z12.31 [id number] MD Monet Sullivan (MAJOR ACCOUNT REPRESENTATIVE) [address] [place] [address] [id number] 0 07/09/2015 15:47:04 07/09/2015 17:51:26 Menorrhagia 089909815 N92.0 Family leobardo nning surveillance 667600879 Z30.09 Subcutaneo us contraceptive implant present 231011187 Z30.013 [id number] [facility] [address] [place] [address] [id number] 0 09/10/2015 12:06:31 09/10/2015 13:32:01 Chronic instability of knee 838439583 M23.52 Hypertensive disorder 38 977960 I10 [id number] MD Monet Chakraborty (Adult Med) [address] [place] [address] [id number] 0 10/12/2015 16:43:31 10/12/2015 18:08:49 Pain in left knee 4389129035 84811 M25.562 [id number] [facility] [address] [place] [address] [id number] 0 12/22/2015 15:41:09 12/22/2015 16:41:55 Chronic instability of knee 086249880 M23.52 Chronic ob structive pulmonary disease 19392235 J44.9 Hypertensive disorder 38 947773 I10 Osteoarthr itis of knee 698596502 M17.9 Chronic diarrhea 3314425 09 K52.9 [id number] Fan Thomas MD [facility] [address] [place] [address] 01/14/2016 10:03:52 01/14/2016 13:18:09 Knee joint painful on movement 733252468 M25.562 Chondromal acia of patella 78747254 M22.42 Osteoarthr itis of knee 163438706 M17.12 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 [id number] Arcelia Manriquez MD [facility] (Adult Med) [address] [place] [address] [id number] 0 01/19/2016 15:20:16 01/19/2016 16:42:52 Chronic diarrhea 786999812 K52.9 Chronic ob structive pulmonary disease 44950108 J44.9 Osteoarthr itis of knee 213699118 M17.9 Morbid obesity 685764273 E66.01 [id number] Fe Hamlin MD [facility] [address] [address] 2 01/22/2016 12:12:54 01/22/2016 15:02:26 Diarrhea 06288435 R19.7 Paresthesi a of upper limb 73731734 R20.2 [id number] Arcelia Manriquez MD [facility] (Adult Med) [address] [place] [address] [id number] 0 02/12/2016 09:53:27 02/12/2016 11:19:59 Chronic obstructive pulmonary disease 38904659 J44.9 Chronic in stability of knee 862165573 M23.52 Morbid obesity 896137455 E66.01 Osteoarthr itis of knee 674897726 M17.9 Calcaneal spur 20961204 M77.31 M77.32 Helicobact er pylori-associated gastritis 898073404 B96.81 Tobacco de pendence syndrome 85309814 F17.473 [id number] Arcelia Manriquez MD [facility] (Adult Med) [address] [place] [address] [id number] 0 03/08/2016 10:48:16 03/08/2016 12:57:51 Chronic instability of knee 630534423 M23.52 Chronic ob structive pulmonary disease 13035868 J44.9 Chronic diarrhea 4386876 09 K52.9 Morbid obesity 138623168 E66.01 Osteoarthr itis of knee 798719314 M17.9 Helicobact er pylori-associated gastritis 133849718 B96.81 Tobacco de pendence syndrome 16249268 F17.290 Pain in limb 17174229 M7 9.609 Chronic anxiety 94059048 9 F41.9 [id number] Fe Hamlin MD [facility] (Adult Med) [address] [place] [address] [id number] 0 03/21/2016 16:10:00 03/21/2016 17:49:39 Helicobacter pylori-associated gastritis 542442599 K29.70 Chronic ab dominal pain 651146941 R10.9 [id number] MD Monet Rizo (MAJOR ACCOUNT REPRESENTATIVE) [address] [place] [address] [phone] 0 05/03/2016 10:03:00 05/03/2016 16:43:02 Gynecologic examination 16424773 Z01.419 Screening mammography 24 208293 Z12.31 Vaginal dryness 93046452 N89.8 Bacterial vaginosis 4197 27809 N76.0 Candidiasis of vagina 72 803467 B37.3 Obesity 573093018 E66.9 Excessive growth of facial hair 415614198 L68.2 counseled about possible causes . counseled about side effects of spironolac tone. Counseled patient about laser treatment. She opted spironolac tone. Reduced libido 0203591 R 68.82 Counseled about effect of weight , perimenopa usal age on sexual drive. counseled about weight loss. Since patient stated that vaginal dryness causing discomfort during intercours e and Advised her to use replens. [id number] MD Monet Rizo (MAJOR ACCOUNT REPRESENTATIVE) [address] [place] [address] [id number] 0 06/10/2016 10:20:19 06/10/2016 11:57:03 Night sweats 39173931 R61 COUNSELED THOROUGHLY ABOUT CAUSES AND MANAGEMENT INCLUDING EFFECTS OF HER MEDICATION S.ADVISED HER TO F/U WITH PSYCHIATRI ST TO DISCUSS ABOUT HER MEDICATION S AND ALSO FOR COGNETIVE BEHAVIORAL THERAPY. Reduced libido 9861124 R 68.82 Counseled about effect of weight , perimenopa usal age on sexual drive. counseled about weight loss. Since patient stated that vaginal dryness causing discomfort during intercours e and Advised her to use replens. Morbid obesity 831811795 E66.01 SHE LOST 4 POUNDS. SINCE SHE IS SEEING COLLEGE OR UNIVERSITY FACULTY MEMBER. [id number] MD Monet Sullivan (MAJOR ACCOUNT REPRESENTATIVE) [address] [place] [address] 15057-924 0 07/07/2016 10:11:55 07/08/2016 12:30:10 Removal of subcutaneous contraceptive done 4962401776 33522 Z98.890 Morbid obesity 266307825 E66.01 Obesity 547419886 E66.9 Vitamin D deficiency 347 51514 E55.9 Irritable bowel syndrome with diarrhea 765372876 K58.0 Family leobardo nning surveillance 428408563 Z30.09 Chronic ab dominal pain 986614219 R10.9 Chronic ob structive pulmonary disease 84719011 J44.9 [id number] MD Monet Chakraborty (Adult Med) [address] [place] [address] [id number] 0 08/29/2016 10:55:09 08/29/2016 18:17:56 Chronic instability of knee 789644631 M23.52 Both sides. Morbid obesity 761692537 E66.01 Diet, exercise as tolerated, lose weight , and she is going to consult about her bariatric operation in the future. Mood swings 65218877 R45 .86 Under the care of psychiatrovi frank. Localized swelling, mass and lump, upper limb 936220687 R22.32 From previous iv site, local heating pad, tylenol, expected to heal completly in the future. [id number] MD Monet Rizo (MAJOR ACCOUNT REPRESENTATIVE) [address] [place] [address] [id number] 0 09/07/2016 11:06:24 09/08/2016 16:16:21 Body mass index 40+ - severely obese 082161960 Z68.41 Needs work up for pre-diabet es, diabetes, insulin resistance with primary care physician. Vaginal dryness 31039251 N89.8 Improved and advised to continue the Replens Reduced libido 0315591 R 68.82 Improved after using Replens. Patient states that her and her boyfriend are very happy [id number] MD Monet Chakraborty (Adult Med) [address] [place] [address] [id number] 0 12/12/2016 12:26:19 12/12/2016 14:30:52 Chronic instability of knee 288441049 M23.52 Both sides. Osteoarthr itis of knee 774363344 M17.9 Tobacco de pendence syndrome 34329476 F17.290 Hip joint painful on movement 174278878 M25.209 [id number] [facility] (MAJOR ACCOUNT REPRESENTATIVE) [address] [place] [address] 11509-551 0 01/04/2017 11:12:11 01/04/2017 12:27:36 Polycystic ovaries 39054203 E28.2 counseled about PCOS. Counseled about insulin resistance , effect of insulin on androgens, menstrual periods, estrogen levels and its effect on EMT, breast, metabolic syndrome. Counseled About weight loss, diet and excercise. [id number] Fan Thomas MD [facility] [address] [place] [address] 03/13/2017 13:53:10 03/14/2017 14:57:05 Pain in right knee 8296356085 83826 M25.561 Osteoarthr itis of knee 123454740 M17.11 rec gastric sleeve Medical Staff Credentialing Coordinator consult Derangemen t of medial meniscus 798413737 M23.321 ?? MR R Knee at return [id number] Rola Zamarripa MD [facility] (MAJOR ACCOUNT REPRESENTATIVE) [address] [place] [address] [id number] 0 05/16/2017 10:20:22 05/16/2017 14:14:36 Pain of breast 95443644 N64.4 Severe pain with light touch. Counseled about different cause. Since she has severe pain with light touch - refer to breast surgeon. Advised patient to take OTC ibuprofen. Gynecologi c examination 10255124 Z01.419 Age appropriat e counseling done. Vaginal dryness 36483196 N89.8 Advised to continue the Replens ON DAILY BASIS Obesity 296245847 E66.9 Patient say she saw historic sites supervisor. Counseled About weight loss, diet and excercise. Reduced libido 3043763 R 68.82 Counseled about effect of weight , perimenopa usal age on sexual drive. counseled about weight loss. Since patient stated that vaginal dryness causing discomfort during intercours e and Advised her to use replens. Menopausal flushing 1983 98002 N95.1 Counseled about it. Called her psychiatri st Ms. Amy Jimenez at [facility] and spoke to her myself. As per Ms. Amy Jimenez patient is on zoloft 100 md. D/W Ms. Amy Jimenez about starting venlafaxin e for hot flashes since it interacts with doxepin, clonazepam and zoloft. Ms. Amy Greer said that its ok to start venlafaxin e which help both hot flashes and depression and she say she is stop zoloft and swith doxepin to different medication for insomnia. She also say its ok to give venlafaxin e with clonazepam . She said she will contact the patient and notify of the change. Notified patient. Bacterial vaginosis 4197 34368 N76.0 Counseled about it. Polycystic ovaries 46795 008 E28.2 Will increase dose to 1000 mg PO BID. Increased blood pressure 54885642 R03.0 Advised to f/u with PCP Venereal d isease screening 546777289 Z11.3 Patient refused [id number] Fan Thomas MD [facility] [address] [address] 06/19/2017 14:13:46 06/19/2017 16:38:23 Derangement of medial meniscus 680001993 M23.321 declines injection Osteoarthr itis of knee 484472175 M17.11 Chondromal acia of patella 92273475 M22.42 [id number] Arcelia Manriquez MD [facility] (Adult Med) [address] [place] [address] 69069-663 0 09/29/2017 09:47:04 10/02/2017 11:46:49 Pain in left arm 902402967 M79.602 She clims that she has nerve damage on the left arm, will refer to specialist , neurology referral. Osteoarthr itis of knee 810629577 M17.9 Under the care of her cost specialist . [id number] MD Monet Chakraborty (Adult Med) [address] [place] [address] 49141[address]676 0 10/09/2017 18:01:00 10/10/2017 10:18:04 Acute low back pain 651090911 M54.[address] [facility]. [id number] MD Monet Chakraborty (Adult Med) [address] [place] [address] [id number] 0 10/16/2017 15:03:44 10/17/2017 11:59:51 Irritable bowel syndrome with diarrhea 164976285 K58.0 Patient is instructed to give the stool specimen first before taking metronidaz ole. Go to ER any time for any concern she understood and agreed. Chronic pain syndrome 37 8933378 G89.4 [id number] Fan Thomas MD [facility] [place] [address] 01/08/2018 14:08:38 01/10/2018 17:05:33 Derangement of medial meniscus 734191412 M23.321 declines injection demands TKR; limited indication Consider Scope if brings official MR Report Osteoarthr itis of knee 754256067 M17.11 Declines pain management for meds Pain in right knee 74344 45788 18335 M25.561 Chondromal acia of patella 09204450 M22.42 [id number] MD Monet Rizo (MAJOR ACCOUNT REPRESENTATIVE) [address] [place] [address] 0 01/16/2018 15:40:38 01/16/2018 17:04:42 Morbid obesity 938382355 E66.01 [id number] Rola Zamarripa MD [facility] (MAJOR ACCOUNT REPRESENTATIVE) [address] [place] [address]2706[address] 0 04/02/2018 11:44:17 04/02/2018 17:09:17 Pruritic rash 82768793 L28.2 Since patient say rash started after starting metformin, advised patient to stop metformin. Benadryl for allergic reaction. If rash still persists after stopping metformin will revaluate at that time about restarting metformin. Obese 252744644 E66.9 Counseled About weight loss, diet and excercise. Advised patient to f/u with historic sites supervisor. Notified patient that I do not prescribe weight loss pills and she need to f/u with PCP and historic sites supervisor. [id number] [facility] [address] [place] [address] 04/09/2018 11:33:06 04/10/2018 10:00:21 Abdominal pain 97018758 R10.9 Advised r to gp to Er any times for any concern, she understood and agreed. Knee pain 31313591 M23.5 1 M25.562 Got injections in the joint from her orthopedic . Pain of le ft hip joint 2493747531 49341 M25.552 Declines to have orthopedic referral. Pain of hip region 36755 002 M25.559 M25.551 Chronic anxiety 74302522 9 F41.9 Unstable emotion, declines to go to behavior health clinic. [id number] MD [facility] (MAJOR ACCOUNT REPRESENTATIVE) [address] [place] [address] 0 04/30/2018 16:11:44 05/01/2018 13:09:40 Morbid obesity 655545029 E66.01 Family leobardo nning surveillance 207583731 Z30.09 Chronic ob structive pulmonary disease 88720557 J44.9 [id number] MD Monet Chakraborty (Adult Med) [address] [place] [address]81[address]207 0 06/07/2018 14:16:53 06/08/2018 12:23:57 Kidney stone 78400884 N20.0 [id number] MD Monet Rizo (MAJOR ACCOUNT REPRESENTATIVE) [address] [place] [address] 06832-055 0 07/02/2018 11:11:50 07/02/2018 13:35:24 Gynecologic examination 36069705 Z01.419 Age appropriat e counseling done. Venereal d isease screening 350616486 Z11.3 Patient refused BLOOD WORK. Menopausal flushing 1984 89137 N95.1 Counseled about it. Patient on venlafaxin e. Conseled about increasing the dose. She said she has appointmen t with her psychiatri st and she will talk to her psychiatri st about increasing dose. Night sweats 84877507 R6 1 COUNSELED THOROUGHLY ABOUT CAUSES AND MANAGEMENT INCLUDING EFFECTS OF HER MEDICATION S.ADVISED HER TO F/U WITH PSYCHIATRI ST TO DISCUSS ABOUT HER MEDICATION S AND ALSO FOR COGNETIVE BEHAVIORAL THERAPY. Screening mammography 24 167532 Z12.31 Right uppe r quadrant pain 498028477 R10.11 Secondary to severe RUQ pain , Patient to ER. 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 [id number] MD Monet Sullivan (MAJOR ACCOUNT REPRESENTATIVE) [address] [place] [address] 93870-328 0 07/25/2018 14:54:44 07/27/2018 12:16:34 Screening mammography 80892933 Z12.31 [id number] MD Monet Sullivan (MAJOR ACCOUNT REPRESENTATIVE) [address] [place] [address]35[address] 0 09/06/2018 10:41:00 09/06/2018 14:05:18 Morbid obesity 768622395 E66.01 [id number] MD Monet Sullivan (MAJOR ACCOUNT REPRESENTATIVE) [address] [place] [address] 48386[address] 0 10/12/2018 15:01:19 10/16/2018 10:40:39 [id number] MD Monet Sullivan (MAJOR ACCOUNT REPRESENTATIVE) [address] [place] [address]33[address] 0 11/20/2018 10:29:07 11/22/2018 12:53:06 [id number] MD Monet Chakraborty (Adult Med) [address] [place] [address]6662-179 0 11/28/2018 15:31:27 11/29/2018 10:47:50 Pain of right shoulder joint 7770775693 6737685 M25.511 Pain ful , on narcotic pain med from Er,. Also explain toher about policy of narcotic prescripti on : contract, drug screening and less one week supply. Her 2 girls went in rest room with her, so will change drug screening to blood test. Chronic cholecystitis 20 993300 K81.1 Under the care of hr surgeon. Morbid obesity 738107529 E66.01 Diet, exercise as tolerated, lose weight , and she is going to consult about her bariatric operation in the future. [id number] MD Monet Chakraborty (Adult Med) [address] [place] [address] 58285-763 0 12/13/2018 17:08:27 12/14/2018 11:50:56 Pain of right shoulder joint 3782367037 2712512 M25.511 Pain ful , on narcotic pain med from Er,. Also explain toher about policy of narcotic prescripti on : contract, drug screening and less one week supply. Her 2 girls went in rest room with her, so will change drug screening to blood test. [id number] MD Monet Sullivan (MAJOR ACCOUNT REPRESENTATIVE) [address] [place] [address] 96827-411 0 12/21/2018 10:35:35 12/21/2018 14:13:09 Weight maintenance regimen 82451394 Z71.3 7 b weight loss since 11/28/2018 ssm form filled out and faxed to [facility] [id number] MD Monet Sullivan (MAJOR ACCOUNT REPRESENTATIVE) [address] [place] [address] 0 01/04/2019 10:04:34 01/07/2019 12:28:45 Weight maintenance regimen 73709951 Z71.3 ssm form filled out and faxed to [facility] [id number] MD Monet Chakraborty (Adult Med) [address] [place] [address] 11457[address]772 0 01/28/2019 15:11:46 01/29/2019 09:48:31 Morbid obesity 293992140 E66.01 Diet, exercise as tolerated, lose weight , and she is going to consult about her bariatric operation in the future., has lost about 30 pounds since 2017. No medical contraindi cation for bariatric operation, Surgeon Dr. Fitch office informed, [phone]. However, she has seen her WARD ATTENDANT for monitoring her weight all along, will contact Dr. Clemente Thompson for this issue to clarify. [id number] MD [facility] (MAJOR ACCOUNT REPRESENTATIVE) [address] [place] [address] 79775-504 0 02/08/2019 10:36:02 02/12/2019 10:59:26 [id number] MD Monet Sullivan (MAJOR ACCOUNT REPRESENTATIVE) [address] [place] [address] 31102[address]585 0 03/07/2019 11:49:19 03/08/2019 11:52:13 [id number] MD [facility] (Adult Med) [address] [place] [address] 97202[address]243 0 09/05/2019 08:31:57 09/06/2019 06:40:29 Nausea and vomiting 49931530 R11.2 Discussed with patient, She stated that she has gall bladder issue which has been advised by her surgeon to be operated, she preferes to go to [facility], she agreed to go to ER of [facility] today. [id number] [facility] [address] [place] [address] 13974-790 0 01/08/2020 08:11:21 01/16/2020 09:45:56 Swelling of lower leg 302951238 R22.42 Discussed with patient., she agreed to go to closer ER TO BE CHECKED OUT., TODAY. Chest pain 20564829 R07. 9 sHE AGREED TO GO TO CLOSER ER TODAY. [id number] MD Monet Sullivan (MAJOR ACCOUNT REPRESENTATIVE) [address] [place] [address] 88430-240 0 01/13/2020 08:00:06 01/14/2020 06:40:47 Candidiasis of vagina 04067823 B37.3 Screening mammography 24 768623 Z12.31 Exposure t o sexually transmissible disorder 651051507 Z20.2 Morbid obesity 997065815 E66.01 Menopausal syndrome 1237 95894 N95.9 [id number] Arcelia Manriquez MD [facility] (Adult Med) [address] [place] [address] 37998-170 0 05/19/2020 08:23:45 05/20/2020 11:50:05 Infection of skin 860159538 L08.9 Pain of right calf 49815 37580 555719 M79.661 Discussed with patient, will refill gabapentin , a;so advised par=adalgisa t to go to ER any time for any concern, she agreed. [id number] MD Mnoet Sullivan (MAJOR ACCOUNT REPRESENTATIVE) [address] [place] [address] 08545[address]916 0 07/02/2020 08:41:02 07/03/2020 09:05:29 Acute urinary tract infection 368346492 N39.0 Exposure t o sexually transmissible disorder 573539892 Z20.2 Morbid obesity 612317127 E66.01 Chronic ob structive pulmonary disease 12880790 J44.9 Screening for malignant neoplasm of breast 489493085 Z12.39 [id number] MD Monet Chakraborty (Adult Med) [address] [place] [address] 61139[address]785 0 06/28/2021 14:36:12 06/29/2021 10:44:15 Urinary tract infectious disease 66258678 N39.0 REcovered after being treatd at Urgent care, no symptomes now. Itching of skin 86164608 0 L29.9 Superficia l old light brownish scars on thre back, she wants to try some topica crea s and agreed for the dermatolog ist referral, phone , address and name provided. [id number] MD [facility] [address] [place] [address] 68729[address]626 0 12/09/2021 11:43:54 12/10/2021 14:08:45 Cellulitis of skin of back 471588078 L03.312 Discussed with patient, she agreed to hold off her psy med and discuss with her psychiatri st for this issue, and mean time to try empirical abs Screening for malignant neoplasm of colon 168731008 Z12.11 She agreed, Screening mammography 24 091074 Z12.31 She agreed for the mammogram. [id number] MD [facility] [address] [place] [address] 37043[address]923 0 06/29/2022 16:44:08 07/05/2022 17:19:24 Morbid obesity 336002136 E66.01 Diet, exercise as tolerated, lose weight , and she is going to consult about her bariatric operation in the future., has lost about 30 pounds since 2017. No medical contraindi cation for bariatric operation, Surgeon Dr. Fitch office informed, . However, she has seen her WARD ATTENDANT for monitoring her weight all along, will contact Dr. Clemente Thompson for this issue to clarify. As 06-30-22, her weight is 232.12 pounds and HT 5 ft 3.5 inch. BMI is 40.5 Screening for malignant neoplasm of cervix 661269923 Z12.4 Will refer to her WARD ATTENDANT. [id number] Arcelia Manriquez MD [facility] (Adult Med) [address] [place] [address] 19038-213 0 07/28/2022 12:12:41 08/01/2022 12:10:02 Morbid obesity 926994879 E66.01 Diet, exercise as tolerated, lose weight , and she is going to consult about her bariatric operation in the future., has lost about 30 pounds since 2017. No medical contraindi cation for bariatric operation, Surgeon Dr. Fitch office informed, . However, she has seen her WARD ATTENDANT for monitoring her weight all along, will contact Dr. Clemente Thompson for this issue to clarify. As 06-30-22, her weight is 232.12 pounds and HT 5 ft 3.5 inch. BMI is 40.5 As 07-28-22. Weight 231.8 with BMI is 40.4.Needs chest x ray PFT and cardiac clearnce. was told from [facility]. [id number] Arcelia Manriquez MD [facility] (Adult Med) [address] [place] [address] 25106-575 0 05/25/2023 17:08:07 05/31/2023 13:57:13 Screening mammography 58816161 Z12.31 She agreed for the mammogram. Helicobact er pylori gastrointestinal tract infection 074726837 B96.81 he said that she has been treated foe H. Pylori infection, before the bariatric operation, was treated with clindamyci n, doxycyclin e, and metronidaz ole. , Will re-test it , if positive then will treat it, if negative mare not treat it. Morbid obesity 630888915 E66.01 Diet, exercise as tolerated, lose weight , and she is going to consult about her bariatric operation in the future., has lost about 30 pounds since 2017. No medical contraindi cation for bariatric operation, Surgeon Dr. Fitch office informed, . However, she has seen her WARD ATTENDANT for monitoring her weight all along, will contact Dr. Clemente Thompson for this issue to clarify. As 06-30-22, her weight is 232.12 pounds and HT 5 ft 3.5 inch. BMI is 40.5 As 07-28-22. Weight 231.8 with BMI is 40.4.Needs chest x ray PFT and cardiac clearnce. was told from [facility]. As today 05-25-23, She lost about 24 lb since bariatric operation. at [facility]. [id number] MD Monet Max (Adult Med) [address] [place] [address]49[address] 0 01/10/2024 11:11:46 01/12/2024 11:49:42 Gynecologic examination 59956090 Z01.419 Nuswab sample takenPap sample taken Depression screening 171 799132 Z13.31 PHQ9- Negative (0 out of 27) Mental hea lth screening 633373769 Z13.39 GAD7- Negative (2 out of 21) Obesity 477396897 E66.8 BMI 36.1 Skin lesion 03741901 L98 .9 Discussed with patient to start triamcinol one BID to affected areas [id number] MD Monet Plasencia (Adult Med) [address] [place] [address] 75918-991 0 01/30/2024 10:55:27 02/13/2024 11:00:05 Skin lesion 32468726 L98.9 Discussed with patient to c/w triamcinol one BID to affected areasCultu re of lesion on back takenDerm referral given today Adult heal th examination 099001998 Z00.00 Routine labs - will contact patient with results Screening for malignant neoplasm of breast 272866358 Z12.39 Mammogram ordered - will contact patient with results Influenza vaccination declined 176180202 Z28.21 Depression screening 171 954738 Z13.31 PHQ9- Negative (0 out of 27) Mental hea lth screening 588422949 Z13.39 GAD7- Negative (4 out of 21) Obesity 689376931 E66.81 2 BMI 35 Advised decreased portion sizes, good food choices, limited eating out or fast food and eliminate soda and juice from diet. Advised physical activity daily and offered encouragem ent to continue with positive changes. [id number] MD Monet Plasencia (Adult Med) [address] [place] [address]19[address]811 0 05/21/2024 17:10:31 05/22/2024 15:30:26 Infection caused by Staphylococcus aureus 614551284 A49.01 Start cephalexin 500mg BID x 7 days Exposure to scabies 1626 460115 8164174 Z20.7 Possible exposure to scabiesSta rt permethrin 5% topical cream Obesity 175155490 E66.9 BMI 34.8 Advised decreased portion sizes, good food choices, limited eating out or fast food and eliminate soda and juice from diet. Advised physical activity daily and offered encouragem ent to continue with positive changes. Depression screening 171 070806 Z13.31 PHQ9- Negative (3 out of 27) Mental hea lth screening 840998982 Z13.39 GAD7- Negative (1 out of 21) [id number] Fitz Ramos MD [facility] [address] [place] [address] 06/17/2024 13:46:38 06/18/2024 10:45:34 Mass of soft tissue 840528008 R22.9 discussed with patient the procedure of excision of the left thigh mass. Discussed with her the procedure in layman's terms as well as the risks, complicati ons, alternativ es, and likely outcomes including there would be a scar. The patient understand s this like to proceed. We will perform this under local anesthesia . The patient understand s this as well. [id number] Fitz Ramos MD [facility] [address] [place] [address] 07/02/2024 10:33:42 07/02/2024 12:33:22 Postoperative visit 285069802 Z48.89 discussed benign path with patient in layman's terms, the patient understand s, sutures removed without difficulty . , discussed further wound care with patient layman's terms, we will see patient back on a p.r.n. basis [id number] Fitz Ramos MD [facility] [address] [place] [address] 07/29/2024 10:56:28 07/29/2024 12:31:45 Skin lesion 12859569 L98.9 [id number] Rain Alonso MD [facility] (Adult Med) [address] [place] [address] [place] [address] 09/04/2024 14:52:51 09/05/2024 11:21:44 Abscess of nose 1727552 J34.0 Will stop Mupirocin since it is not helping. Lesion is not draining. Will have her try heat and oral antibiotic . Advised her to discontinu e antibiotic and seek medical attention if develops any skin lesions or lesions on mucous membranes. Elevated blood-pressure reading without diagnosis of hypertension 451756421 R03.0 Blood pressure elevated today but no history of hypertensi on and last blood pressures in the office have been normal. Avoid decongesta nts and ibuprofen. No history of elevated blood pressure. No signs of end organ damage. She has not been feeling well and was very worried about what was going on with her health, and it is likely that anxiety caused her blood pressure to go up. She has a blood pressure cuff at home so she will check her pressure over the next two days and call on Monday to let us know what it is. If it is not back to normal readings we will determine the next step to take. Health Concerns Section Related Observation LastModified by Organization Detai ls LastModified Time None Recorded Concern Status LastModified by Organization Details LastModified Time None Recorded Advance Directives Directive N: Payers Encounter Date Sequence Insurance Name Policy Number Policy Mojica Covered Member ID Mojica Member ID Guarantor Name 05/21/[address] [facility] ON OR AFTER 10/22/20 (MEDICAID REPLACEMENT - HMO) Estela San [id number] Estela San 06/17/[address] [facility] ON OR AFTER 10/22/20 (MEDICAID REPLACEMENT - HMO) Estela San [id number] Estela San 07/02/[address] [facility] ON OR AFTER 10/22/20 (MEDICAID REPLACEMENT - HMO) Estela San [id number] Estela San 07/29/[address] [facility] ON OR AFTER 10/22/20 (MEDICAID REPLACEMENT - HMO) Estela San [id number] Estela San 09/04/[address] [facility] ON OR AFTER 10/22/20 (MEDICAID REPLACEMENT - HMO) Estela San [id number] Estela San Notes Date Note Type Note Provider Name and Address Organization Details Recorded Time 05/21/2024 text/html 53-year-old female here complaining of rash all over skin. Patient states she has been dealing with this for many years and has not been able to get relief. Patient states she has gone to urgent care and emergency rooms and has been given multiple creams that have not worked. Patient states medication given to her from her last visit with me helped dry up the rash but it did not go away completely. Patient does not know what else to do wants to be sent to the hospital and admitted so she can get treatment at the hospital. Patient states that nobody else in her household has a rash but herself. JACQUI OG PA-C Attn: [address] [place], [address], [facility] 05/21/2024 17:57:28 06/17/2024 text/html patient is a 53-year-old female with 1-2 year history of a mass of the left thigh. Patient says the mass is painful and has gotten larger. Patient describes pain is mild and stabbing quality and radiates into the surrounding tissue. Patient says it recently has been more painful. Patient denies any fever chills or bleeding or discharge Fitz Ramos MD [address], [place], [address], [facility] 06/17/2024 14:54:17 07/02/2024 text/html Patient has foll ow up of excision mass from left thigh. Patient is doing well not having problems postoperatively. Patient is happy with the result, discussed the pathology with patient that this was a benign fat necrosis lesion and she understands that. Fitz Ramos MD [address], [place], [address], [facility] 07/02/2024 10:51:51 07/29/2024 text/html patient is statu s post excision of a mass from the left thigh. Patient has an area of eschar on the medial aspect of the wound which is bothersome for her. Patient denies any fever chills or bleeding or discharge. MD Ralph Araujo, [place], [address], [facility] 07/29/2024 11:17:20 09/04/2024 text/html sick visit, has has Staph before, recently had a sinus infection, symptoms started two and a half months ago, cough and spitting up green sputum, runny nose, Dr. Og gave her an antibiotic and steroid, that resolved but symptoms have now returned, last two days went to urgent care, first doctor told her she had MRSA but did not examine her, was given Mupirocin, went back and they looked in nose, said she did not have MRSA but had a sore in nose, still spitting up green, no cough, no drainage, sore in nose that hurts on right side, no history of hypertension, no chest pain, no shortness of breath, no headaches Rain Alonso MD Attn: Accounting[address] [place], [address], [facility] 09/04/2024 18:26:31 OBGyn Episode Ob Episode Information Episode Created Date Number of Fetuses Patient Bloodtype Patient rh Status Prepregnancy Weight lbs Domestic Partner Domestic Partner Phone Father Name Statistical Engineer Status 07/09/19 16 1 CLOSED Fetus Data First Name Last Name Admitted to NICU Weight (g) Sex Living Outcome Pediatric Complications Fetus ID Race Codes Race Delivery Type 3486.98 85 M Full Term [id number] Arnold Calculation Initial Arnold Date Initial Exam Date Initial Exam Provider Initial Ultrasound Date Last Menstrual Period Date Ultra Sound Weeks Gestation 0 Eighteen To Twenty Week Arnold Update Ultra Sound Date Fundal Height At Umbil Quickening Date Ultra Sound Latest Weeks Gestation Final Arnold Confirmed By Final Arnold Confirmed Date Final Arnold Date Ultra Sound Latest Days Gestation 0 0 Menstrual History Last Menstrual Date Menses Monthly On Bcp Conception Prior Menses Frequency Hcg Plus Date Menarche Onset Age Delivery Information Delivery Date Delivery Type Labor Anesthesia Weeks Gestation Incision Type Labor Labor Length Hrs Delivered By Post Complications Tubal Sterilization Discharge Date Comments 5 Regional- idural [address] @ 1years old Drowned Discharge Information Feeding Method Contraceptive Method Maternal HG B and HCT Levels Ob Episode Information Episode Created Date Number of Fetuses Patient Bloodtype Patient rh Status Prepregnancy Weight lbs Domestic Partner Domestic Partner Phone Father Name Statistical Engineer Status 07/09/19 16 1 CLOSED Fetus Data First Name Last Name Admitted to NICU Weight (g) Sex Living Outcome Pediatric Complications Fetus ID Race Codes Race Delivery Type 3401.94 F Full Term [id number] Arnold Calculation Initial Arnold Date Initial Exam Date Initial Exam Provider Initial Ultrasound Date Last Menstrual Period Date Ultra Sound Weeks Gestation 0 Eighteen To Twenty Week Arnold Update Ultra Sound Date Fundal Height At Umbil Quickening Date Ultra Sound Latest Weeks Gestation Final Arnold Confirmed By Final Arnold Confirmed Date Final Arnold Date Ultra Sound Latest Days Gestation 0 0 Menstrual History Last Menstrual Date Menses Monthly On Bcp Conception Prior Menses Frequency Hcg Plus Date Menarche Onset Age Delivery Information Delivery Date Delivery Type Labor Anesthesia Weeks Gestation Incision Type Labor Labor Length Hrs Delivered By Post Complications Tubal Sterilization Discharge Date Comments 0 Regional-Ep idural 40 false Mouna Discharge Information Feeding Method Contraceptive Method Maternal HG B and HCT Levels
--- OUTSIDE RECORDS SUMMARY | 2024-09-21 21:02 | XMS_ITS | Clinical Summary ---
Author Organization [facility] Address [address] [place] [address] Phone Care Team Providers Care Haulage Boss Name Role Phone Arcelia Manriquez MD Primary Care Provider [phone] Allergies Active Allergy Reactions Criticality Noted Date Comments Levofloxacin In D5w Anaphylaxis High 10/23/2018 Swelling, trouble breathing, rash Meperidine Hives Metformin Rash 10/10/2018 Was on metformin for weight loss Penicillins Anaphylaxis 06/30/2015 Bupropion Hcl Anaphylaxis Medium 10/23/2018 Swelling, trouble breathing Azithromycin Anaphylaxis 06/30/2015 Medications clonazePAM (KLONOPIN) 0.5 MG TabletIndication s:Anxiety Take 0.5 mg by mouth 2 times daily. 0 8 Active temazepam (RESTORIL) 30 MG CapsuleIndicatio ns:Insomnia, unspecified type Take 30 mg by mouth nightly as needed. 0 8 Active DULoxetine (CYMBALTA) [address] ParticlesIndicat ions:Anxiety Take 1 Cap by mouth daily. 90 Cap 8 Active Additional Information Patient not taking.Reported on 10/09/2018 metFORMIN (GLUCOPHAGE) 1000 MG Tablet Take 1,000 mg by mouth 2 times daily (with meals). Active venlafaxine (EFFEXOR-XR) 37.5 MG CAPSULE SR 24 HR Take 37.5 mg by mouth daily. 9 Active ergocalciferol (VITAMIN D) 61782 UNIT Capsule Take 50,000 Units by mouth once a week. 9 Active dicyclomine (BENTYL) 10 MG Capsule Take 1 Cap by mouth every 6 hours as needed for Other (abdominal pain and diarrhea). 30 Cap 9 Active Additional Information Patient not taking.Reported on 11/26/2018 carBAMazepine (TEGRETOL) 200 MG Tablet Take 100 mg by mouth daily. Pt takes 100 mg daily, in the morning Active raNITIdine (ZANTAC) 150 MG TabletIndication s:Pharyngoesopha geal dysphagia Take 1 Tab by mouth 2 times daily. 180 Tab 9 Active Bismuth 262 MG Chewable Tablet Take 3 tablets four times a day for 10 days 120 Tab 9 Active Additional Information Patient not taking.Reported on 11/26/2018 metroNIDAZOLE (FLAGYL) 250 MG Tablet Take 1.5 tablets four times a day for 10 days 60 Tab 9 Active Additional Information Patient not taking.Reported on 11/26/2018 Active Problems Problem Noted Date Diagnosed Date Biliary dyskinesia 11/26/2018 Anxiety 02/13/2018 Menopausal hot flushes 02/13/2018 Night sweats 02/13/2018 Obesity, Class III, BMI 40-49.9 (morbid obesity) 02/13/2018 Insomnia 02/13/2018 Osteoarthritis of multiple joints 02/13/2018 Gastritis without bleeding 02/13/2018 Family History Medical History Relation Name Comments Cancer Father lung Stroke Father Cancer Paternal Grandmother bone Cancer Sister pancreatic Relation Name Status Comments Father Mother Paternal Grandmother Sister Social History Tobacco Use Types Packs/Day Years Used Date Smoking Tobacco: Former Cigarettes Q uit: 10/10/2017 Smokeless Tobacco: Never Alcohol Use Standard Drinks/Week Comments Not Currently 0 (1 standard drink = 0.6 oz pur e alcohol) PHQ-2 Answer Date Recorded PHQ-2 Score 1 12/27/2018 Sexually Active Control Partners Comments Not Currently Comments No Sex and Gender Information Value Date Recorded Sex Assigned at Not on file Legal Sex Female 9:35 PM CDT Gender Identity Not on file Sexual Orientation Not on file Last Filed Vital Signs Vital Sign Reading Time Taken Comments Blood Pressure 122/78 11/26/2018 8:26 AM CDT Pulse 59 11/26/2018 8:26 AM CDT Temperature 36.5 C (97.7 F) 11/26/2018 8:26 AM CDT Respiratory Rate 18 11/26/2018 8:26 AM CDT Oxygen Saturation 96% 11/26/2018 8:26 AM CDT Inhaled Oxygen Concentration - - Weight 100.7 kg (222 lb) 11/26/2018 8:26 AM CDT Height 161.3 cm (5' 3.5) 11/26/2018 8:26 AM CDT Body Mass Index 38.71 11/26/2018 8:26 AM CDT Plan of Treatment Health Maintenance Due Date Last Done Comments TdaP Immunization 1968 Hepatitis B Immunization (1 of 3 - 19+ 3-dose series) 12/09/1987 Colonoscopy 2013 Colorectal Cancer Screening 2013 Cologuard 2018 Immunochemical Fecal Occult Blood 2018 Pneumococcal Immunization (5 0+ years) (1 of 1 - PCV) 2018 Zoster Immunization (1 of 2) 2018 Influenza Immunization (#1) 2023 SARS-COV-2 Immunization (3 - season) 2023 12/21/2020, 12/01/2020 Respiratory Syncytial Virus (RSV) Immunization (Adult) (1 - 1-dose 75+ series) 12/09/2043 Meningococcal Immunization (ACWY) Aged Out No longer eligible b ased on patient's age to complete this topic Rotavirus Immunization Aged Out No lo nger eligible based on patient's age to complete this topic Insurance MEDICAID [facility] Care Teams Haulage Boss Relationship Specialty Start Date End Date Arcelia Manriquez MD [address] [place] [address] PCP - General Geriatric Medicine 10/24/18
--- OUTSIDE RECORDS SUMMARY | 2024-09-21 21:02 | XMS_ITS | Clinical Summary ---
Author Organization [facility] Address [address] [place] [id number] Care Team Providers Care Sample Card Maker Name Role Phone Alfredo Og Primary Care Provider [phone] Allergies Active Allergy Reactions Criticality Noted Date Comments Azithromycin Anaphylaxis High Bupropion Anaphylaxis,Swelling,Headache High 2018 Etonogestrel Diarrhea Low 05/10/2023 Levofloxacin Anaphylaxis High 09/21/2019 Meperidine Anaphylaxis,Hives,Swelling,Rash High Metformin Diarrhea,Rash,Nausea & Vomiting Medium 08/24 Penicillins Anaphylaxis High Tramadol Itching,Vomiting Low 02/14/2019 Medications clonazePAM (KlonoPIN) 0.5 mg tablet Take 1 tablet (0.5 mg total) by mouth 2 (two) times a day as needed for anxiety 08/22/2019 Active lurasidone (LATUDA) 20 mg tablet 07/05/2022 Active vilazodone (VIIBRYD) 40 mg tablet Take 1 tablet (40 mg total) by mouth nightly 03/21/2023 Active ibuprofen (ADVIL,MOTRIN) 800 mg tablet Take 1 tablet (800 mg total) by mouth 2 (two) times a day Active vitamin E acetate (VITAMIN E ORAL) Take by mouth every morning Active ondansetron (ZOFRAN) 4 mg tablet Take 1 tablet (4 mg total) by mouth every 8 (eight) hours as needed for nausea or vomiting Start post-surgery 20 tablet 2 04/19/2023 Active acetaminophen (TYLENOL) 500 mg tablet Take 2 tablets (1,000 mg total) by mouth every 8 (eight) hours 05/02/2023 Active lurasidone (LATUDA) 80 mg tablet 04/26/2023 Active cyanocobalamin (Vitamin B-12) 500 mcg tablet Take 1 tablet (500 mcg total) by mouth daily Start post Surgery 90 tablet 3 05/02/2024 05/02/19 26 Active calcium citrate-vitamin D3 200 mg-6.25 mcg (250 unit) tablet Take 2 tablets by mouth 3 (three) times a day Start post-surgery 540 tablet 3 07/29/2024 07/30/19 26 Active multivitamin with minerals tabletIndicatio ns:Vitamin Deficiency Prevention Take 2 tablets by mouth daily 60 tablet 11 07/30/2024 07/31/19 26 Active Active Problems Problem Noted Date Diagnosed Date Status post bariatric surgery 08/01/2023 KASEY (obstructive sleep apnea) 05/01/2023 Other specified anxiety disorders 06/17/2022 Biliary colic 09/09/2019 Overview (09/09/2019): Added automatically from request for surgery [id number] RUQ abdominal pain 09/06/2019 Assessment & Plan (09/07/2019 11:13 AM CDT): Presenting with acute on chronic RUQ abdominal pain, nausea, and inability to tolerate PO intake. Symptoms first started 2 years ago and she follows with outpatient GI specialist at [facility] and was diagnosed with bilary dyskinesia after HIDA scan showed gallbladder EF of 0%. Prior outpatient plan was for cholecystectomy with her gastric sleeve procedure, which has yet to be scheduled due to current COVID pandemic -Now presenting with 2 days of persistent RUQ pain and nausea that has not improved. Reports she is only able to keep popsickles down -Labs with normal LFTs, lipase, and lactate -RUQ US without gallstones, gallbladder wall thickening, or fluid -CT abdomen/pelvis without acute process or findings to explain her pain -Patient is upset that her surgeries have been delayed and reports she just wants her gallbladder out as she is tired of dealing with the intermittent pain -Plan to minimize opioids and advance diet as tolerated. -HIDA scan on 09/05, 1. Poor gallbladder contractile response to sincalide infusion with abnormally decreased gallbladder ejection fraction. This is nonspecific, but can be seen in the setting of biliary dyskinesia or chronic cholecystitis. 2. Otherwise normal biliary imaging study. - [place] SURGERY to see today. Assessment & Plan (09/06/2019 6:22 AM CDT): Presenting with acute on chronic RUQ abdominal pain, nausea, and inability to tolerate PO intake. Symptoms first started 2 years ago and she follows with outpatient GI specialist at [facility] and was diagnosed with bilary dyskinesia after HIDA scan showed gallbladder EF of 0%. Prior outpatient plan was for cholecystectomy with her gastric sleeve procedure, which has yet to be scheduled due to current COVID pandemic -Now presenting with 2 days of persistent RUQ pain and nausea that has not improved. Reports she is only able to keep popsickles down -Labs with normal LFTs, lipase, and lactate -RUQ US without gallstones, gallbladder wall thickening, or fluid -CT abdomen/pelvis without acute process or findings to explain her pain -Patient is upset that her surgeries have been delayed and reports she just wants her gallbladder out as she is tired of dealing with the intermittent pain -Will ensure no cardiac source of pain with troponin and EKG -Plan to minimize opioids and advance diet as tolerated -Consider GI consult in AM & possible repeat HIDA scan vs trying PO challenge and discharging home with outpatient general surgery and GI follow-up History of hepatitis C 09/06/2019 Assessment & Plan (09/07/2019 11:13 AM CDT): S/p treatment and has had negative viral load x2 Assessment & Plan (09/06/2019 6:23 AM CDT): S/p treatment and has had negative viral load x2 Biliary dyskinesia 11/26/2018 Gastritis without bleeding 02/13/2018 Assessment & Plan (09/07/2019 11:11 AM CDT): EGD in 10/2018 with gastritis and positive for H.pylori, now s/p treatment and was due for repeat EGD as part of her bariatric surgery evaluation, but has not been completed yet -Previously on ranitidine but states she has been off this for some time now -Will start pantoprazole 40 mg qday Assessment & Plan (09/06/2019 6:16 AM CDT): EGD in 10/2018 with gastritis and positive for H.pylori, now s/p treatment and was due for repeat EGD as part of her bariatric surgery evaluation, but has not been completed yet -Previously on ranitidine but states she has been off this for some time now -Will start pantoprazole 40 mg qday Anxiety with depression 02/13/2018 Assessment & Plan (09/07/2019 11:11 AM CDT): Chart history of bipolar depression with prior suicide attempt with attempting to take excessive seroquel and clonopin in 2016 -Currently reports no SI/HI -Continue home fluoxetine 20 mg qday (recently started due to loss of 2 friends during pandemic) -Risperdal was also on medication list, but she reports she no longer takes this Assessment & Plan (09/06/2019 6:14 AM CDT): Chart history of bipolar depression with prior suicide attempt with attempting to take excessive seroquel and clonopin in 2016 -Currently reports no SI/HI -Continue home fluoxetine 20 mg qday (recently started due to loss of 2 friends during pandemic) -Risperdal was also on medication list, but she reports she no longer takes this Acute bronchitis 04/24/2017 Bronchospasm 04/24/2017 Resolved Problems Problem Noted Date Diagnosed Date Resolved Date Morbid obesity 06/09/2022 08/01/2023 Overview (06/09/2022): Added automatically from request for surgery [id number] BMI 37.0-37.9, adult 02/13/2018 04/2 023 Assessment & Plan (09/07/2019 11:11 AM CDT): Follows with [facility] weight management clinic and is being considered for gastric sleeve operation. -MIS called this AM, prob as out pt. Assessment & Plan (09/06/2019 6:16 AM CDT): Follows with [facility] weight management clinic and is being considered for gastric sleeve operation Encounters Date Type Department Care Team Description 07/29/2024 [facility] - [facility] Minimally Invasive Surgery [address], [place] [address] Mark Ch MD Medical Question/Miscellaneous from Last 3 Months Surgical History Surgery Date Site/Laterality Comments KNEE ARTHROSCOPY 04/24/2009 - 04/23/2010 Left CORNEAL TRANSPLANT 05/25/2019 - 06/22/2019 Left ESOPHAGOGASTRODUODENOSCOPY 04/24/2018 - 04/23/2019 SECTION 04/24/1989 - 04/23/1990 SECTION 04/24/1992 - 04/23/1993 LAPAROSCOPIC CHOLECYSTECTOMY 04/24/2019 - 04/23/2020 Medical History Medical History Date Comments Anxiety disorder Depression Hypertension Obesity Sleep apnea Family History Medical History Relation Name Comments Asthma Other 1 Family history of Asthma; Cancer Other 2 Family history of Cancer; Diabetes Other 3 Family history of Diabetes mellitus; Hypertension Other 4 Family history of Hypertension; Stroke Other 5 Family history of Stroke; Other Other 6 Family history of Tuberculosis; Heart disease Other 7 Family history of Heart disease; Anesthesia problems Neg Hx Malig Hyperthermia Neg Hx Pseudochol deficiency Neg Hx Relation Name Status Comments Other 1 Other 2 Other 3 Other 4 Other 5 Other 6 Other 7 Social History Tobacco Use Types Packs/Day Years Used Date Smoking Tobacco: Former Cigarettes 1 34.8 1 - 02/2019 Smokeless Tobacco: Never Alcohol Use Standard Drinks/Week Comments No 0 (1 standard drink = 0.6 oz pur e alcohol) AUDIT-C Answer Date Recorded Q1: How often do you have a drink containing alcohol? Never 05/01/2023 Q2: How many drinks containi ng alcohol do you have on a typical day when you are drinking? Patient does not drink Q3: How often do you have si x or more drinks on one occasion? Never 05/01/2023 Personal Safety Answer Date Recorded Have you ever been in or are you currently in a harmful physical or emotional relationship or is someone making you feel afraid or unsafe? Denies 05/01/2023 Comments No Sex and Gender Information Value Date Recorded Sex Assigned at Not on file Legal Sex Female 9:27 AM SPA MANAGER Gender Identity Female 05/18/2022 10:51 AM SPA MANAGER Sexual Orientation Straight 05/18/2022 10 :51 AM SPA MANAGER Obstetrics History Last Filed Vital Signs Vital Sign Reading Time Taken Comments Blood Pressure 151/102 05/10/2023 9:36 AM SPA MANAGER Pulse 109 05/10/2023 9:36 AM SPA MANAGER Temperature 36.6 C (97.9 F) 05/10/2023 9:36 AM SPA MANAGER Respiratory Rate 20 05/02/2023 3:16 AM SPA MANAGER Oxygen Saturation 97% 05/10/2023 9:36 AM SPA MANAGER Inhaled Oxygen Concentration - - Weight 112.8 kg (248 lb 9.6 oz) 05/10/2023 9:36 AM SPA MANAGER Height 160 cm (5' 3) 05/10/2023 9:36 AM SPA MANAGER Body Mass Index 44.04 05/10/2023 9:36 AM SPA MANAGER Plan of Treatment Health Maintenance Due Date Last Done Comments Breast Cancer Screening-Mammogram 1968 Cervical Cancer Screening 1968 Colon Cancer Screening-Colonoscopy 1968 Depression Screening 1968 DTaP/Tdap/Td Vaccine (1 - Tdap) 12/09/1979 Hepatitis B Screening 1986 Regular Well Visit/Exam 18-64 1986 Pneumococcal vaccine <65 (1 of 2 - PCV) 12/09/1987 Lung Cancer Screening 2018 Zoster Vaccine (1 of 2) 2018 Covid-19 Vaccine (3 - season) 2023, 12/01/2020 Influenza Vaccine (Season Ended) 2024 Hepatitis C Screening Completed 09/06/2019 Medical Devices Implanted Type Area A And P Technician Device Identifier Shelf Expiration Date Model / Serial / Lot [employer] Biological Bariatric Peristrip Non Crosslinked Bovine Pericardium For Endo Sayra Thin [id number] - Sn/A - [id number] Implanted:Qty: 1 on 05/01/2023 by Mark Ch MD at [facility] Other - see comments N/A: Stomach [employer] 08/25/2025 [id number] ATHN / N/A / [id number]- [id number] Description:Staple reinforce ment [employer] Bariatric Peristrip Non Crosslinked Bovine Pericardium For Endo Sayra Thin [id number] - Sn/A - [id number] Implanted:Qty: 1 on 05/01/2023 by Mark Ch MD at [facility] Other - see comments N/A: Stomach [employer] 08/25/2025 [id number] ATHN / N/A / [id number]- [id number] Description:Staple reinforce ment Insurance [facility] Advance Directives For more information, please contact: [phone] * Full Code (Latest Code Status on File) Date Activated Date Inactivated Comments 05/01/2023 12:20 PM 05/02/2023 5:48 PM * Full Code Date Activated Date Inactivated Comments 09/06/2019 6:12 AM 09/07/2019 8:55 PM Care Teams Sample Card Maker Relationship Specialty Start Date End Date Alfredo Og PA [address] [place] [address] PCP - General Physician Assistant Professor Of Forestry 03/07/24
--- OUTSIDE RECORDS SUMMARY | 2024-09-21 21:02 | XMS_ITS | Referral Summary ---
Author Organization [facility] Address [address] [place] [address] Care Team Providers Care Automotive Service Professional Name Role Phone Alfredo Og Primary Care Provider [phone] Encounters Date Type Department Care Team Description 07/29/2024 Telephone [facility] ([facility] - [facility] Minimally Invasive Surgery [address] [place] [address] [facility] 12th [address], [place] [address] Mark Ch MD Medical Question/Miscellaneous from Last 3 Months Allergies Active Allergy Reactions Criticality Noted Date [...] (09/09/2019): Added automatically from request for surgery [id number] RUQ abdominal pain 09/06/2019 Assessment & Plan (09/07/2019 11:13 AM CDT): Presenting with acute on chronic RUQ abdominal pain, nausea, and inability to tolerate PO intake. Symptoms first started 2 years ago and she follows with outpatient GI specialist at [facility] and was diagnosed with bilary dyskinesia [...] 2. Otherwise normal biliary imaging study. - [place] SURGERY to see today. Assessment & Plan (09/06/2019 6:22 AM CDT): Presenting with acute on chronic RUQ abdominal pain, nausea, and inability to tolerate PO intake. Symptoms first started 2 years ago and she follows with outpatient GI specialist at [facility] and was diagnosed with bilary dyskinesia [...] (06/09/2022): Added automatically from request for surgery [id number] BMI 37.0-37.9, adult 02/13/2018 023 Assessment & Plan (09/07/2019 11:11 AM CDT): Follows with [facility] weight management clinic and is being considered for gastric sleeve operation. -MIS called this AM, prob as out pt. Assessment & Plan (09/06/2019 6:16 AM CDT): Follows with [facility] weight management clinic and is being considered for gastric sleeve operation Social History Tobacco Use Types Packs/Day Years Used Date Smoking Tobacco: Former Cigarettes 1 34.8 1 985 - 02/2019 Smokeless Tobacco: Never Alcohol Use [...] on file Legal Sex Female 9:27 AM SENIOR LICENSING MANAGER Gender Identity Female 05/18/2022 10:51 AM SENIOR LICENSING MANAGER Sexual Orientation Straight 05/18/2022 10 :51 AM SENIOR LICENSING MANAGER Last Filed Vital Signs Vital Sign Reading Time Taken Comments Blood Pressure 151/102 05/10/2023 9:36 AM SENIOR LICENSING MANAGER Pulse 109 05/10/2023 9:36 AM SENIOR LICENSING MANAGER Temperature 36.6 C (97.9 F) 05/10/2023 9:36 AM SENIOR LICENSING MANAGER Respiratory Rate 20 05/02/2023 3:16 AM SENIOR LICENSING MANAGER Oxygen Saturation 97% 05/10/2023 9:36 AM SENIOR LICENSING MANAGER Inhaled Oxygen Concentration - - Weight 112.8 kg (248 lb 9.6 oz) 05/10/2023 9:36 AM SENIOR LICENSING MANAGER Height 160 cm (5' 3) 05/10/2023 9:36 AM SENIOR LICENSING MANAGER Body Mass Index 44.04 05/10/2023 9:36 AM SENIOR LICENSING MANAGER Plan of Treatment Not on file Medical Devices Implanted Type Area Communication Electronic Technician Device Identifier Shelf Expiration Date Model / Serial / Lot [employer] Bariatric Peristrip Non Crosslinked Bovine Pericardium For Endo Sayra Thin [id number] - Sn/A - [id number] Implanted:Qty: 1 on 05/01/2023 by Mark Ch MD at [facility] Other - see comments N/A: Stomach [employer] 08/25/2025 [id number] ATHN / N/A / [id number]- [id number] Description:Staple reinforce ment [employer] Biological Bariatric Peristrip Non Crosslinked Bovine Pericardium For Endo Sayra Thin [id number] - Sn/A - [id number] Implanted:Qty: 1 on 05/01/2023 by Mark Ch MD at [facility] Other - see comments N/A: Stomach [employer] 08/25/2025 [id number] ATHN / N/A / [id number]- [id number] Description:Staple reinforce ment [place] [address] [place] [address] [facility] Advance Directives For more information, please contact: [phone] * Full Code (Latest Code Status on File) Date Activated Date Inactivated Comments 05/01/2023 12:20 PM 05/02/2023 5:48 PM * Full Code Date Activated Date Inactivated Comments 09/06/2019 6:12 AM 09/07/2019 8:55 PM Care Teams Automotive Service Professional Relationship Specialty Start Date End Date Alfredo Og PA [address] [place] [id number] PCP - General Physician Disability Attorney 03/07/24
--- OUTSIDE RECORDS SUMMARY | 2024-09-21 21:02 | XMS_ITS | Data Portability ---
Author Organization [facility] Laura Sapiens, Main Office Address [address] [place] [address] Assessment Encounter Date Assessment Date Assessment LastModified by Organization Details LastModified Time 08/25/2022 08/25/2022 Assessment: KASEY PLMD Hypoventilation Plan: The following were reviewed and explained to the patient: primary care/referral note General information on sleep disordered breathing, evaluation of sleep disordered breathing, treatment with PAP therapy, and living with PAP therapy were covered. Chapter 1 of educational DVD was shown. PSG is medically necessary to determine the degree of and management of sleep apnea. We discussed with the patient the impact of weight on: Sleep disordered breathing Renal calculi Urge urinary incontinence Knee OA Genu valgum We discussed with the patient the benefit of PAP therapy on: Sleep disordered breathing Anxiety/Depressi on Educated the patient on sleep hygiene measures. Relaxing rituals to rest easy, understanding foods with positive and negative impact on sleep, creating a peaceful sleep environment, timing of exercise, using herbal sleep aids, and practicing sleep-friendly meditation were covered. To determine how much sleep is needed, the patient will assess where she falls on the spectrum, examine what lifestyle factors such as work schedules and stress are affecting the quality and quantity of sleep. In general, adults need 7-9 hours of sleep. Educated the patient regarding foods that promote sleep. These include but are not limited to cherries, bananas, toast, oatmeal, and warm milk. Educated the patient regarding foods and drinks to avoid before bedtime. These include but are not limited to aged cheese, chocolate, spicy foods, tomato-based sauces, soy, ginseng tea and processed meat. Advocated influenza vaccination annually and pneumonia vaccination in 2033. Advocated weight loss through diet and exercise. Patient's ideal body weight according to height and gender is up to 125 lbs. Encouraged patient to adjust caloric intake to maintain/achieve ideal body weight, emphasizing on fruits, vegetables, whole grains, and fat-free or low-fat products. These include lean meats, poultry, fish, beans, eggs, and nuts and foods that are low in saturated fats, trans-fats, cholesterol, salt (sodium), and glycemic index. Stressed the importance of regular exercise up to the patient's capacity limits. In this case, we recommend 20 min daily walking, 2 days a week of resistance training. Patient to monitor BP daily and bring records to PCP for further management. Follow-up: 1 week after diagnostic sleep study Not available 08/25/2022 13:29:45 09/29/2022 09/29/2022 Assessment: Mild OSAHS, AHI = 14 Plan: The following were reviewed and explained to the patient: PFT 08/25/22 nl FEV1/FVC, FEV1 2.37 L (92%), TLC 4.65 L (94%), DLCO 64%, DLCO/VA 119% [facility] diagnostic sleep study 09/20/22 AHI = 14, REM AHI = 53 General information on sleep disordered breathing, evaluation of sleep disordered breathing, treatment with PAP therapy, and living with PAP therapy were covered. PSG is medically necessary to determine the management of sleep apnea. We discussed with the patient the impact of weight on: Sleep disordered breathing Renal calculi Urge urinary incontinence Knee OA Genu valgum We discussed with the patient the benefit of PAP therapy on: Sleep disordered breathing Anxiety/Depressi on Educated the patient on sleep hygiene measures. Relaxing rituals to rest easy, understanding foods with positive and negative impact on sleep, creating a peaceful sleep environment, timing of exercise, using herbal sleep aids, and practicing sleep-friendly meditation were covered. To determine how much sleep is needed, the patient will assess where she falls on the spectrum, examine what lifestyle factors such as work schedules and stress are affecting the quality and quantity of sleep. In general, adults need 7-9 hours of sleep. Educated the patient regarding foods that promote sleep. These include but are not limited to cherries, bananas, toast, oatmeal, and warm milk. Educated the patient regarding foods and drinks to avoid before bedtime. These include but are not limited to aged cheese, chocolate, spicy foods, tomato-based sauces, soy, ginseng tea and processed meat. Advocated influenza vaccination annually and pneumonia vaccination in 2033. Advocated weight loss through diet and exercise. Patient's ideal body weight according to height and gender is up to 125 lbs. Encouraged patient to adjust caloric intake to maintain/achieve ideal body weight, emphasizing on fruits, vegetables, whole grains, and fat-free or low-fat products. These include lean meats, poultry, fish, beans, eggs, and nuts and foods that are low in saturated fats, trans-fats, cholesterol, salt (sodium), and glycemic index. Stressed the importance of regular exercise up to the patient's capacity limits. In this case, we recommend 20 min daily walking, 2 days a week of resistance training. Patient to monitor BP daily and bring records to PCP for further management. Follow-up: 1 week after titration sleep study Not available 09/29/2022 13:12:35 12/15/2022 12/15/2022 Assessment: Mild OSAHS, AHI = 14 Plan: The following were reviewed and explained to the patient: PFT 08/25/22 nl FEV1/FVC, FEV1 2.37 L (92%), TLC 4.65 L (94%), DLCO 64%, DLCO/VA 119% [facility] diagnostic sleep study 09/20/22 AHI = 14, REM AHI = 53 [facility] titration sleep study 12/09/22 [employer] medium Brevida nasal mask @ 6-10 cmH2O Educated the patient on problems and solutions associated with positive airway pressure (PAP) use. Difficulty tolerating pressure, mask leaks, intolerance of interface, nasal congestion, claustrophobic response, dry mouth, and unintentional mask removal during sleep were covered. [employer]Med Air Sense 11 auto set unit with heated humidifier, supplies, [employer] medium Brevida nasal mask @ 6-10 cmH2O ordered. Further titration will be based on clinical response. Provided the patient with a list of local home care stores where positive airway pressure (PAP) units, accoutrement, and services are available. Home care store selection is based on patient's insurance carrier. Patient will setup an appointment with [facility] for supplies and pressure adjustments. A major predictor of success with use of PAP is follow-up with both the respiratory supplier and the treating physician. The respiratory supplier optimally will follow-up within two weeks after starting use while the treating physician optimally will follow-up within 90 days after starting therapy to assess adherence and effectiveness of treatment. The download results can show the treating physician information about adherence to treatment, residual AHI while on treatment and presence of large mask leakage. This information is especially helpful if the patient has residual sleepiness despite treatment. General information on sleep disordered breathing, evaluation of sleep disordered breathing, treatment with PAP therapy, and living with PAP therapy were covered. We discussed with the patient the impact of weight on: Sleep disordered breathing Renal calculi Urge urinary incontinence Knee OA Genu valgum We discussed with the patient the benefit of PAP therapy on: Sleep disordered breathing Anxiety/Depressi on Educated the patient on sleep hygiene measures. Relaxing rituals to rest easy, understanding foods with positive and negative impact on sleep, creating a peaceful sleep environment, timing of exercise, using herbal sleep aids, and practicing sleep-friendly meditation were covered. To determine how much sleep is needed, the patient will assess where she falls on the spectrum, examine what lifestyle factors such as work schedules and stress are affecting the quality and quantity of sleep. In general, adults need 7-9 hours of sleep. Educated the patient regarding foods that promote sleep. These include but are not limited to cherries, bananas, toast, oatmeal, and warm milk. Educated the patient regarding foods and drinks to avoid before bedtime. These include but are not limited to aged cheese, chocolate, spicy foods, tomato-based sauces, soy, ginseng tea and processed meat. Advocated influenza vaccination annually and pneumonia vaccination in 2033. Advocated weight loss through diet and exercise. Patient's ideal body weight according to height and gender is up to 125 lbs. Encouraged patient to adjust caloric intake to maintain/achieve ideal body weight, emphasizing on fruits, vegetables, whole grains, and fat-free or low-fat products. These include lean meats, poultry, fish, beans, eggs, and nuts and foods that are low in saturated fats, trans-fats, cholesterol, salt (sodium), and glycemic index. Stressed the importance of regular exercise up to the patient's capacity limits. In this case, we recommend 20 min daily walking, 2 days a week of resistance training. Patient to monitor BP daily and bring records to PCP for further management. Follow-up: 3 months, February 2023 Not available 12/15/2022 10:46:22 Plan of Treatment Reminders Order Date Submit Date Provider Last Modified By Organization Details Last Modified Time Details Appointments None recorded. Lab None recorded. Referral None recorded. Procedures None recorded. Surgeries None recorded. Imaging polysomnog sydni, titration study 2022 023 [facility], [address] [place], [address], 19:37:49 polysomnog sydni, diagnostic , 6 yrs or older - no auth needed 2022 023 [facility], [address] [place], [address], 13:22:49 Medication Orders None recorded. Patient TargetsNo targets recorded. Patient InstructionsNo instructions recorded. Reason for Referral None Reported. Results Created Date Observation Date Name Description Value Unit Range Abnormal Flag Note LastModifiedBy Organization Detail LastModifiedTime 08/27/19 23 08/25/2022 PFT, compl ete No observ ation record ed. BAR[facility] Not Available 2022 17:40:54 09/29/19 23 09/20/2022 polys omnog sydni, diagn ostic , 6 yrs or older No observ ation record ed. [facility] [address] [place], [address], 09/28/2022 13:22:49 12/29/19 23 12/13/2022 polys omnog sydni, titra tion study No observ ation record ed. [facility] [address] [place], [address], 12/28/2022 19:37:49 Result Notes None recorded. Problems Name Problem SNOMED Code Status Onset Date Resolution Date Notes Provider Name and Address Organization Details Recorded Time Plantar fascial fibromatosis 43294649 Active Not Available [facility] 3 08:46:36 Osteoarthriti s of knee 820173367 Active Not Available [facility] 3 08:46:36 Inflammatory disorder of extremity 440042402 Active Not Available [facility] 3 08:46:36 Sleep apnea 74252674 Active 2022 Herve Calderon MD [address], [place], [address] , [facility] 3 12:12:26 Obstructive sleep apnea syndrome 35895855 Active 2022 Herve Calderon MD [address], [place], [address] , [facility] 3 10:44:48 Notes:[facility] titration sleep s tudy 12/09/22 [employer] medium Brevida nasal mask @ 6-10 cmH2O Medical History: Delayed sleep phase syndrome Anxiety/Depression Bruxism Obesity with mild OSAHS, AHI = 14, 09/20/22 H. pylori gastritis Renal calculi Urge urinary incontinence Vit D deficiency Knee OA Genu valgum Procedure History: C-sections 1989, 1992 Tubal ligation 1992 Left knee arthroscopy 2007 Colonoscopy 2015 Left corneal replacement surgery 2019 Problem Notes None recorded. Procedures Surgical History Date Name Laterality Status Provider Name and Address Organization Details Recorded Time Cholecystectomy completed Shaye alonso MA [facility] 08/25/2022 12:34:23 section completed Shaye varela MA [facility] 08/25/2022 12:34:34 section completed Shaye varela MA [facility] 08/25/2022 12:34:35 Knee completed Shaye Peguero MA [facility] 08/25/2022 12:35:02 Imaging Results None recorded. Procedure Notes None recorded. Medical Equipment None Reported. Allergies Allergen ID Allergen Name Allergen Category Reaction Reaction Severity Criticality Documentation Date Start Date Code Code System Note Provider Name and Address Organization Details Recorded Time 27042 tramadol medicatio n hives severe Not available 06/22/2022 15832 RxNorm Not Available [facility] 08:50:34 65157 Product containin g penicilli n (product) medicatio n anaphylax is severe Not available 06/22/2022 85885 8001 SNOMED Not Available [facility] 3 08:50:34 04670 Demerol medicatio n anaphylax is severe Not available 06/22/2022 33590 1 RxNorm Not Available [facility] 3 08:50:34 87675 Cipro medicatio n anaphylax is severe Not available 06/22/2022 65965 3 RxNorm Not Available [facility] 3 08:50:34 18447 erythromy emma medicatio n anaphylax is Not available Not available 08/24/2022 4053 RxNorm Herve Calderon MD [address], [address], [place], [address], [facility] 3 17:03:51 19538 gabapenti n medicatio n Not available Not available Not available 08/24/2022 05901 RxNorm blist er Herve Calderon MD [address], [address], [place], [address], [facility] 3 17:05:11 52197 Levaquin medicatio n anaphylax is Not available Not available 08/24/2022 44239 2 RxNorm Herve Calderon MD [address], [address], [place], [address], [facility] 3 17:05:33 90112 metformin medicatio n Not available Not available Not available 08/24/2022 6809 RxNorm Herve Calderon MD [address], [address], [place], [address], [facility] 3 17:05:42 95352 Nexplanon medicatio n diarrhea Not available Not available 08/24/2022 91064 08 RxNorm Herve Calderon MD [address], [address], [place], [address], [facility] 3 17:05:56 47758 Wellbutri n medicatio n anaphylax is Not available Not available 08/24/2022 85351 RxNorm Herve Calderon MD [address], [address], [place], [address], [facility] 3 17:06:11 Medications Name Sig Start Date Stop Date Status Note LastModified by Organization Details LastModified Time cyclobenzap rine 10 mg tablet TK 1 T PO BID 08/24 completed Not Available Not Available Not Available metformin 500 mg tablet 08/24 completed Not Available Not Available Not Available hydrocodone 7.5 mg-ibuprofe n 200 mg tablet TK 1 T PO BID PRN 08/24 completed Not Available Not Available Not Available venlafaxine ER 37.5 mg capsule,ext ended release 24 hr 08/24 completed Not Available Not Available Not Available prednisone 10 mg tablet TK 4 TABS DAILY FOR 3 DAYS 3 TABS DAILY X 3 DAYS 2 TABS DAILY X 3 DAYS 1 DAILY X 3 DAYS 08/24 completed Not Available Not Available Not Available doxycycline hyclate 100 mg capsule 12/15 completed Not Available Not Available Not Available clindamycin HCl 300 mg capsule TAKE 2 CAPSULES BY MOUTH TWICE DAILY FOR 10 DAYS 12/15 completed Not Available Not Available Not Available ibuprofen 800 mg tablet TAKE 1 TABLET BY MOUTH TWICE DAILY FOR 10 DAYS active Not Available Not Available No t Available fluconazole 150 mg tablet TK 1 T PO QD 08/24 completed Not Available Not Available Not Available doxepin 25 mg capsule 08/24 completed Not Available Not Available Not Available hydrocodone 5 mg-acetamin ophen 325 mg tablet TK 1TO 2 TS PO Q 6 H PRN P 08/24 completed Not Available Not Available Not Available carbamazepi ne ER 100 mg tablet,exte nded release,12 hr 08/24 completed Not Available Not Available Not Available metronidazo le 0.75 % (37.5 mg/5 gram) vaginal gel IVB FOR 5 NIGHTS 08/24 completed Not Available Not Available Not Available prednisone 20 mg tablet TK 2 TS PO D FOR 5 DAYS 08/24 completed Not Available Not Available Not Available clonazepam 0.5 mg tablet Take 1 tablet 3 times a day by oral route. active Not Available Not Available No t Available sertraline 100 mg tablet 08/24 completed Not Available Not Available Not Available clonazepam 1 mg tablet 08/24 completed Not Available Not Available Not Available permethrin 5 % topical cream 08/25 completed Not Available Not Available Not Available metronidazo le 500 mg tablet active Not Available Not Available Not Available ciprofloxac in 500 mg tablet TK 1 T PO Q 12 H FOR 7 DAYS 08/24 completed Not Available Not Available Not Available sulfamethox azole 800 mg-trimetho prim 160 mg tablet TK 1 T PO BID TAT 08/24 completed Not Available Not Available Not Available tramadol 50 mg tablet TK 1-2 TS PO Q 4-6 H PRN P 08/24 completed Not Available Not Available Not Available lamotrigine 25 mg tablet TK 2 TS PO BID 08/25 completed Not Available Not Available Not Available ketorolac 10 mg tablet TK 1 T PO QID PRN 08/24 completed Not Available Not Available Not Available oxycodone-a cetaminophe n 5 mg-325 mg tablet TK 1 OR 2 TS PO BID PRF PAIN 08/24 completed Not Available Not Available Not Available temazepam 15 mg capsule 08/24 completed Not Available Not Available Not Available carbamazepi ne ER 200 mg tablet,exte nded release,12 hr 08/24 completed Not Available Not Available Not Available doxycycline monohydrate 100 mg capsule 08/24 completed Not Available Not Available Not Available metformin 1,000 mg tablet 08/25 completed Not Available Not Available Not Available promethazin e 25 mg tablet TK 1 T PO Q 4-6 H PRN N 08/24 completed Not Available Not Available Not Available nicotine 21 mg/24 hr daily transdermal patch 08/25 completed Not Available Not Available Not Available gabapentin 300 mg capsule TK 2 CS PO TID 08/25 completed Not Available Not Available Not Available omeprazole 20 mg capsule,del ayed release TK ONE C PO QD active Not Available Not Available No t Available lorazepam 1 mg tablet TK 1 T PO Q 8 H PRN 08/24 completed Not Available Not Available Not Available levofloxaci n 750 mg tablet TK ONE T PO D FOR 5 DAYS 08/24 completed Not Available Not Available Not Available methylpredn isolone 4 mg tablets in a dose pack FPD 08/24 completed Not Available Not Available Not Available Vitamin D2 1,250 mcg (50,000 unit) capsule 08/25 completed Not Available Not Available Not Available oxybutynin chloride 5 mg tablet TK 1 T PO BID 08/25 completed Not Available Not Available Not Available sertraline 50 mg tablet TK 1 T PO ONCE D 08/24 completed Not Available Not Available Not Available phentermine 37.5 mg capsule TK ONE C PO QAM 08/24 completed Not Available Not Available Not Available naproxen 500 mg tablet TAKE 1 TABLET PO BID PRN FOR ARTHRITIC PAIN 08/24 completed Not Available Not Available Not Available hydroxyzine pamoate 25 mg capsule TK ONE C PO QD 08/24 completed Not Available Not Available Not Available duloxetine 60 mg capsule,del ayed release TK 1 C PO ONCE D 08/25 completed Not Available Not Available Not Available ProAir HFA 90 mcg/actuati on aerosol inhaler INHALE 2 PUFFS PO Q 6 H PRN 08/25 completed Not Available Not Available Not Available omeprazole 20 mg tablet,deondre yed release TK 1 T PO QD 08/25 completed Not Available Not Available Not Available lurasidone 80 mg tablet active Not Available Not Available Not Available vilazodone 40 mg tablet active Not Available Not Available Not Available lurasidone 20 mg tablet active Not Available Not Available Not Available Combivent Respimat 20 mcg-100 mcg/actuati on solution for inhalation INHALE 1 PUFF PO Q 4-6 H 08/25 completed Not Available Not Available Not Available Virtussin AC 10 mg-100 mg/5 mL oral liquid 08/24 completed Not Available Not Available Not Available Vitals Date Recorded Heart rate Respiratory rate Provider N stephanie and Address Organization Details Last Updated DateTime 08/25/2022 83 /min 15 /min Herve Calderon MD [address] [facility] [address], [place], [address], [employer] [facility] 08/25/2022 13:20:16 Date Recorded Body height Body mass index (BMI) Body weight Body temperature Heart rate Oxygen saturation Oxygen saturation in Arterial blood by Pulse oximetry Systolic blood pressure Diastolic blood pressure Provider Name and Address Organization Details Last Updated DateTime 3 161.29 cm 40.3 kg/m2 655204. 84 g 98.4 [degF] 83 /min 96 % 96 % 126 mm[Hg] 82 mm[Hg] Shaye Peguero MA [employer] 12:38:19 Date Recorded Heart rate Heart rate Respiratory rate Provider Name and Address Organization Details Last Updated DateTime 09/29/2022 60 /min 60 /min 15 /min Herve Calderon MD [address], [address], [facility] 09/29/2022 13:24:48 Date Recorded Body height Body mass index (BMI) Body weight Body temperature Oxygen saturation Oxygen saturation in Arterial blood by Pulse oximetry Systolic blood pressure Diastolic blood pressure Provider Name and Address Organization Details Last Updated DateTime 3 161.29 cm 41.7 kg/m2 853984. 58 g 98.1 [degF] 96 % 96 % 124 mm[Hg] 76 mm[Hg] Shaye Peguero MA [facility] 12:59:53 Date Recorded Heart rate Respiratory rate Provider N stephanie and Address Organization Details Last Updated DateTime 12/15/2022 106 /min 15 /min Herve Calderon MD [address] [address], [place], [address], [facility] 12/15/2022 10:55:37 Date Recorded Body height Body mass index (BMI) Body weight Body temperature Heart rate Oxygen saturation Oxygen saturation in Arterial blood by Pulse oximetry Systolic blood pressure Diastolic blood pressure Provider Name and Address Organization Details Last Updated DateTime 3 161.29 cm 43.9 kg/m2 058856. 28 g 97.8 [degF] 106 /min 95 % 95 % 120 mm[Hg] 78 mm[Hg] Shaye Peguero MA [facility] 10:36:03 Social History Question Answer Notes LastModified by Organizat ion Details LastModified Time Tobacco Smoking Status Former Smoker Shaye Peguero MA null, [facility] 08/25/2022 12:31:51 What Is Your Level Of Caffeine Consumption? None Information not available 08/25/2022 In The 14 Days Before Symptom Onset, Have You Had Close Contact With A Laboratory-confir med COVID-19 While That Case Was Ill? No Information not available 08/25/2022 In The 14 Days Before Symptom Onset, Have You Had Close Contact With A Person Who Is Under Investigation For COVID-19 While That Person Was Ill? No Information not available 08/25/2022 What Type Of Diet Are You Following? SPECIFIC Information not available 08/25/2022 Which Illicit Or Recreational Drugs Have You Used? Marijuana Information not available 08/25/2022 Do You Have An Electrostatic Air Filter? No Information not available 08/25/2022 Do You Have A Humidifier? Yes Information not available 08/25/2022 Where [facility] You [facility]? [facility] Information not available 08/25/2022 Do You Have Moisture Problems In Your Home? No Information not available 08/25/2022 What Was The Date Of Your Most Recent Tobacco Screening? 12/15/2022 Information not available 12/15/2022 Do You Have Any Pets? Yes Information not available 08/25/2022 Do You Use Your Seat Belt Or Car Seat Routinely? No Information not available 08/25/2022 Do You Have Smoke And Carbon Monoxide Detectors In Your Home? Yes Information not available 08/25/2022 Are You Passively Exposed To Smoke? No Information no t available 08/25/2022 Do You Use Sunscreen Routinely? No Information not available 08/25/2022 Have You Recently Traveled Abroad? No Information not available 08/25/2022 Do You Have Any Dietary Restrictions? No Information not available 08/25/2022 Sex: Unknown Functional Status Question Answer Note LastModified by Organizat ion Details LastModified Time Do you use any illicit or recreational drugs? Yes Information not available 08/25/2022 What is your level of alcohol consumption? None Information not available 08/25/2022 Are you currently employed? No Information not available 08/25/2022 Have you been exposed to chemicals or toxins? No Information not available 08/25/2022 What is your exercise level? Moderate Information not available 08/25/2022 Mental Status Question Answer Note LastModified by Organization D etails LastModified Time Do you feel stressed (tense, restless, nervous, or anxious, or unable to sleep at night)? LB3040-3 Information not available 08/25/2022 Family History Relationship Description Onset Age of this Age Resolved Age Notes LastModified by Organization Details LastModified Time Mother Diabetes mellitus Not available 2022 17:07:27 Mother Myocardial infarction Not available 08/24 17:07:43 Father Myocardial infarction Not available 08/24 17:07:38 Father Malignant neoplasm of lung [email or web address] Not available 2022 17:08:09 Medical History No medical history recorded. Gynecological HistoryNo gynecological history recorded. Obstetrics History GPAL:G 0 P 0 0 0 0 Past Encounters Encounter ID Performer Location Encounter Start Date Encounter Closed Date Diagnosis/Indication Diagnosis SNOMED-CT Code Diagnosis ICD10 Code Diagnosis Note [id number] Herve Calderon MD [place] [address] 0 08/25/2022 11:59:27 08/26/2022 08:35:56 Sleep apnea 56834368 G47.30 G47.33 G47.36 G47.61 [id number] Herve Calderon MD [place] [address] 0 09/29/2022 12:34:24 09/30/2022 07:53:11 Sleep apnea 61434388 G47.30 G47.33 [id number] Herve Calderon MD [place] [address] 0 12/15/2022 10:22:41 12/16/2022 08:08:02 Obstructive sleep apnea syndrome 91267604 G47.33 Health Concerns Section Related Observation LastModified by Organization Detai ls LastModified Time None Recorded Concern Status LastModified by Organization Details LastModified Time None Recorded Advance Directives Directive None Recorded Payers Encounter Date Sequence Insurance Name Policy Number Policy Mojica Covered Member ID Mojica Member ID Guarantor Name 08/25/2022 1 [employer] - DOS ON OR AFTER 20 (MEDICAID REPLACEMENT - HMO) Estela San [id number] Estela Ríosautumn 09/29/2022 1 [facility] ON OR AFTER 10/22/20 (MEDICAID REPLACEMENT - HMO) Estela Ríosautumn [id number] Estela San 12/15/2022 1 [facility] ON OR AFTER 10/22/20 (MEDICAID REPLACEMENT - HMO) Estela Worthyabhi [id number] Estela San Notes Date Note Type Note Provider Name and Address Organization Details Recorded Time 08/25/2022 text/html Primary care/Ref erring provider: Arcelia Manriquez MD At home, the patient sleeps from 1 am to 10 am and wakes up without an alarm. Snoring: light Snorting: no Choking: no Coughing: no Gasping: no Gagging: no Sighing: no Witnessed apnea: yes Twitching or jerking of leg(s), arm(s), body, head: yes Teeth grinding: yes Teeth clenching: yes Sleeptalking: no Sleepwalking: no Sleep crying: no Bedwetting: no Tongue/lip/gum/cheek biting: no Sleeping with open mouth: yes Sleep paralysis: no Hypnagogic hallucinations: no Hypnopompic hallucinations: no Vivid dreams: no Difficulty with sleep onset: no Difficulty with sleep maintenance: yes Sleep interruptions: nocturia x 1 Patient wakes up with: fatigue, dexterity impairment Daytime cataplexy: no Morning hypersomnolence: no Afternoon hypersomnolence: yes Caffeine sources in diet: tea 1 glass per day, chocolate 1/2 candy bar per week Associated medical and psychiatric conditions: Congestive heart failure: no Coronary artery disease: no Myocardial infarction: no Hypertension: no Stroke: no Bronchial asthma: no Chronic obstructive pulmonary disease: no Depression: yes Bipolar disorder: no Anxiety: yes Panic disorder: no Posttraumatic stress disorder: no Attention deficit and hyperactivity disorder: no Obsessive Compulsive disorder: no Schizophrenia: no Schizoaffective disorder: no Personality disorder: no Chronic analgesic use: no Chronic sedative/hypnotic use: no EPWORTH SLEEPINESS SCALE (ESS) CHANCE OF DOZING SCORE 0 = would never doze 1 = slight chance of dozing 2 = moderate chance of dozing 3 = high chance of dozing SITUATION AND CHANCE OF DOZING Sitting and reading - 3 Watching television - 1 Sitting inactive in a public place (e.g. a theater or meeting) - 1 As a passenger in a car for an hour without a break - 0 Lying down to rest in the afternoon when circumstances permit - 1 Sitting and talking to someone - 1 Sitting quietly after lunch without alcohol - 3 In a car, while stopped for a few minutes in the traffic - 0 TOTAL SCORE 10 Subjectively, patient has a moderate chance of dozing. Herve Calderon MD [address] [place] [address], [facility] [address], [place], [address], [place] [facility] [employer] 08/25/2022 13:32:52 09/29/2022 text/html Primary care/Ref erring provider: Arcelia Manriquez MD CC: I am eventually going for bariatric surgery. During the [facility] diagnostic sleep study on 09/20/22, AHI = 14, REM AHI = 53. At home, the patient sleeps from 1 am to 10 am and wakes up without an alarm. Snoring: lightSnorting: noChoking: noCoughing: noGasping: noGagging: noSighing: noWitnessed apnea: yesTwitching or jerking of leg(s), arm(s), body, head: yesTeeth grinding: yesTeeth clenching: yesSleeptalking: noSleepwalking: noSleep crying: noBedwetting: noTongue/lip/gum/cheek biting: noSleeping with open mouth: yesSleep paralysis: noHypnagogic hallucinations: noHypnopompic hallucinations: noVivid dreams: noDifficulty with sleep onset: noDifficulty with sleep maintenance: yesSleep interruptions: nocturia x 1Patient wakes up with: fatigue, dexterity impairmentDaytime cataplexy: noMorning hypersomnolence: noAfternoon hypersomnolence: yesCaffeine sources in diet: tea 1 glass per day, chocolate 1/2 candy bar per week Associated medical and psychiatric conditions:Congestive heart failure: noCoronary artery disease: noMyocardial infarction: noHypertension: noStroke: noBronchial asthma: noChronic obstructive pulmonary disease: noDepression: yesBipolar disorder: noAnxiety: yesPanic disorder: noPosttraumatic stress disorder: noAttention deficit and hyperactivity disorder: noObsessive Compulsive disorder: noSchizophrenia: noSchizoaffective disorder: noPersonality disorder: noChronic analgesic use: noChronic sedative/hypnotic use: no EPWORTH SLEEPINESS SCALE (ESS) CHANCE OF DOZING SCORE0 = would never doze1 = slight chance of dozing2 = moderate chance of dozing3 = high chance of dozing SITUATION AND CHANCE OF DOZINGSitting and reading - 2Watching television - 2Sitting inactive in a public place (e.g. a theater or meeting) - 2As a passenger in a car for an hour without a break - 1Lying down to rest in the afternoon when circumstances permit - 2Sitting and talking to someone - 1Sitting quietly after lunch without alcohol - 0In a car, while stopped for a few minutes in the traffic - 0TOTAL SCORE 10Subjectively, patient has a moderate chance of dozing. Herve Calderon MD [address] [place] [address], [address], [place] - [facility] [employer] 09/29/2022 13:25:11 12/15/2022 text/html Primary care/Ref erring provider: Arcelia Manriquez MD CC: I am going for bariatric surgery before the end of the year. During the [facility] diagnostic sleep study on 09/20/22, AHI = 14, REM AHI = 53. During the [facility] titration sleep study on 12/09/22, the patient uses a [employer]Med AirSense 11 autoset unit with heated humidification. The patient does not need the ramp to start low and go up slowly on the pressure. There is no xerostomia in a.m. There is no hose/mask condensation with water. The patient wears a [employer] medium Brevida nasal mask without chin strap. There is no claustrophobia, no nostril/nose bridge irritation, no facial rash, no facial numbness, no nosebleeding. The patient feels more refreshed upon waking and daytime alertness is improved. Energy levels are sustained for the remainder of the day. At home, the patient sleeps from 1 am to 10 am and wakes up without an alarm. Snoring: lightSnorting: noChoking: noCoughing: noGasping: noGagging: noSighing: noWitnessed apnea: yesTwitching or jerking of leg(s), arm(s), body, head: yesTeeth grinding: yesTeeth clenching: yesSleeptalking: noSleepwalking: noSleep crying: noBedwetting: noTongue/lip/gum/cheek biting: noSleeping with open mouth: yesSleep paralysis: noHypnagogic hallucinations: noHypnopompic hallucinations: noVivid dreams: noDifficulty with sleep onset: noDifficulty with sleep maintenance: yesSleep interruptions: nocturia x 1Patient wakes up with: fatigue, dexterity impairmentDaytime cataplexy: noMorning hypersomnolence: noAfternoon hypersomnolence: yesCaffeine sources in diet: tea 1 glass per day, chocolate 1/2 candy bar per week Associated medical and psychiatric conditions:Congestive heart failure: noCoronary artery disease: noMyocardial infarction: noHypertension: noStroke: noBronchial asthma: noChronic obstructive pulmonary disease: noDepression: yesBipolar disorder: noAnxiety: yesPanic disorder: noPosttraumatic stress disorder: noAttention deficit and hyperactivity disorder: noObsessive Compulsive disorder: noSchizophrenia: noSchizoaffective disorder: noPersonality disorder: noChronic analgesic use: noChronic sedative/hypnotic use: no EPWORTH SLEEPINESS SCALE (ESS) CHANCE OF DOZING SCORE0 = would never doze1 = slight chance of dozing2 = moderate chance of dozing3 = high chance of dozing SITUATION AND CHANCE OF DOZINGSitting and reading - 1Watching television - 1Sitting inactive in a public place (e.g. a theater or meeting) - 0As a passenger in a car for an hour without a break - 0Lying down to rest in the afternoon when circumstances permit - 1Sitting and talking to someone - 0Sitting quietly after lunch without alcohol - 0In a car, while stopped for a few minutes in the traffic - 0TOTAL SCORE 3Subjectively, patient has a slight chance of dozing. Herve Calderon MD [address] [facility], [facility] [address], [place], [address], [facility] 12/15/2022 10:56:10 OBGyn Episode No OBEpisode recorded.
[2024-09-21 21:05] VITALS: BP 142/76; PULSE 99; RESP 18; TEMP 36.7; O2SAT 97
--- NOTE | 2024-09-21 21:08 | ECG_ITS ---
Test Date: 2024-09-21 21:11:31 Measurements Intervals [place] Rate: 88 P: 60 CT: 172 QRS: 16 QRSD: 78 T: 34 QT: 347 QTc: 421 Interpretive Statements SINUS RHYTHM BASELINE ARTIFACT- I, III, AVR, AVL, AVF NORMAL ECG No previous ECG available for comparison Electronically Signed On 09-22-2024 06:55:36 CDT by Magdiel Ibarra D.O.
[2024-09-21 21:21] LABS: Basophils Absolute Auto 0.1 K/mm3 (0.0-0.1); Basophils Percent Auto 0.9 % (0.2-1.2); Eosinophils Absolute Auto 0.6 K/mm3 (0-0.3); Eosinophils Percent Auto 6.4 % (0-4.4); Hematocrit 37.6 % (37.0-47.0); Hemoglobin 12.2 g/dL (12.0-15.0); Immature Granulocyte Absolute 0.02 K/mm3 (0.00-0.031); Immature Granulocyte Percent A 0.2 % (0-0.5); Lymphocytes Absolute Auto 3.15 K/mm3 (0.9-3.2); Lymphocytes Percent Auto 36.9 % (18.3-44.2); Mean Corpuscular HGB Conc 32.4 g/dl (32-36); Mean Corpuscular Volume 95.4 fl (80-100); Mean Platelet Volume 10.1 fl (7.4-10.4); Monocytes Absolute Auto 0.5 K/mm3 (0.1-0.6); Monocytes Percent Auto 6.3 % (2.6-8.5); Neutrophils Absolute Auto 4.2 K/mm3 (1.3-6.7); Neutrophils Percent Auto 49.3 % (45.5-73.1); Platelet Count Result 344 k/mm3 (150-375); Red Blood Count 3.94 M/mm3 (4.2-5.4); Red Cell Distribution Width 13.1 % (11.5-14.5); White Blood Count 8.5 K/mm3 (4.5-10.0)
[2024-09-21 21:31] LABS: Alanine Aminotransferase 26 U/L (6-35); Albumin Level 4.2 g/dL (3.5-5.1); Alkaline Phosphatase 96 U/L (38-126); Anion Gap 7 mmol/L (4-12); Aspartate Amino Transferase 31 U/L (14-36); Bilirubin,Total 0.3 mg/dL (0.2-1.3); Blood Urea Nitrogen 23 mg/dL (7-17); Calcium 9.1 mg/dL (8.4-10.2); Carbon Dioxide 27 mmol/L (22-30); Chloride 108 mmol/L (98-107); Estimated CRCL calculation 87 ml/min; Estimated Glomerular Filt Rate > 60; Glucose 70 mg/dL (65-110); Lipase 100 U/L (23-300); Potassium 3.7 mmol/L (3.4-5.0); Sodium 142 mmol/L (137-145)
[2024-09-21 21:33] LABS: Partial Thromboplastin Time 22.3 Seconds (22.3-36.8)
[2024-09-21 21:43] LABS: Troponin I < 0.012 ng/mL (0.000-0.034)
--- NOTE | 2024-09-21 23:51 | ECG_ITS ---
Test Date: 2024-09-21 23:57:58 Measurements Intervals [place] Rate: 83 P: 40 RI: 152 QRS: 17 QRSD: 76 T: 31 QT: 359 QTc: 424 Interpretive Statements SINUS RHYTHM BASELINE ARTIFACT- I, III, AVR, AVL, AVF NORMAL ECG Compared to ECG 09/21/2024 21:11:31 No significant changes Electronically Signed On 09-22-2024 06:55:52 CDT by Magdiel Ibarra D.O.
[2024-09-21 23:54] VITALS: BP 121/71; PULSE 86; RESP 18; TEMP 36.4; O2SAT 98
[2024-09-22] MEDS: ACETAMINOPHEN 500 MG TABLET 1000 MG PO (00:08)
[2024-09-22 00:48] LABS: Troponin I < 0.012 ng/mL (0.000-0.034)
--- NOTE | 2024-09-22 00:52 | PC.NURSE ---
Patient and patients visitors speaking loudly on phone in waiting room. Patient and her visitors have attempted to video this RN and patient and visitor have been informed by this RN that permission is not given for this RN to be recorded or on video. Patient and her visitor verbalized understanding. Patient and visitors come to desk a few times and states why are we waiting for so long. This RN informed patient and her visitors that orders have been done per orders placed by ERP. Patient was also given tylenol upon request. Patient informed that ERP is aware of her symptoms and her testing results. Patient continues to request to go back to room. This RN informed patient that wait times are unable to be given but providers are moving as fast as they can and when a room becomes available for her she will be taken back. Patient and her visitors verbalized understanding. flag signalman notified.
--- NOTE | 2024-09-22 01:31 | PC.NURSE ---
Patient comes to desk, and asks can I go wait in the car and lay down and then you come and get me when it is my turn for a room? Patient requested to lay down. Patient was informed by this RN if there was room available in the waiting room to lay down, she is welcome to it but she needs to be able to hear when her name is called. Patient was informed that if she leaves and is not here to hear her name when it is called, then she will be skipped and another patient may go in front of her. Patient started to yell well this is ridiculous, I have been waiting for so long and in pain. This RN informed her that things are moving as fast at they can and a she will be called when a room is available to for her. Patient then wheeled back to the waiting room stating I should've [facility] to [facility].
[2024-09-22 02:11] VITALS: BP 120/60; PULSE 98; RESP 16; O2SAT 100; O2SAT 98
--- OUTSIDE RECORDS SUMMARY | 2024-09-22 02:33 | XMS_ITS | Clinical Summary ---
Author Organization [facility] Address [address] [place] [address] Phone Care Team Providers Care Vehicle Assembler Name Role Phone Arcelia Manriquez MD Primary Care Provider [phone] Allergies Active Allergy Reactions Criticality Noted Date [...] mouth daily. 9 Active ergocalciferol (VITAMIN D) 32854 UNIT Capsule Take 50,000 Units by mouth [...] age to complete this topic Insurance MEDICAID [facility] Care Teams Vehicle Assembler Relationship Specialty Start Date End Date Arcelia Manriquez MD [address] [place] [address] PCP - General Geriatric Medicine 10/24/18
--- OUTSIDE RECORDS SUMMARY | 2024-09-22 02:33 | XMS_ITS | Clinical Summary ---
Author Organization [facility] Address [address] [facility] [place] [address] Care Team Providers Care Buffing Machine Tender Name Role Phone David Rivers MD Primary Care Provider [phone] Elvin Alfaro DO Unavailable [phone] Source Comments [facility],non-owned Affiliates and Associated Physician Practices is amultiple site organization consisting of ambulatory clinics and hospital sitesin [place], [place], [place] and [place]. This disclosure is being madepursuant to the Care Everywhere program and may not contain all information available regarding this patient. Last updated 18.[facility] [employer] Allergies Active Allergy Reactions Criticality Noted Date Comments Azithromycin Anaphylaxis High 06/30/2015 Meperidine Anaphylaxis High 08/09/2018 Levofloxacin Anaphylaxis High 08/09/2018 Metformin GI Discomfort 08/09/2018 Severe diarrhea Penicillins Anaphylaxis High 07/10/2014 Tramadol Itching 02/14/2019 Bupropion Anaphylaxis High 08/09/2018 Also had bad headache Medications * Be aware that medications may not be up to date on this document. Alwaysverify current medications with the patient. clonazePAM (KLONOPIN) 0.5 MG tablet 08/06/2018 Active vitamin D, ergocalciferol, (DRISDOL) 59201 units capsule 09/04/2018 Activ e risperiDONE (RISPERDAL) 1 MG tablet Take 1.5 mg by mouth at bedtime 01/03/2019 Active raNITIdine (ZANTAC) 150 MG tablet TK 1 T PO BID 0 10/23/2018 Active prednisoLONE acetate (PRED FORTE) 1 % ophthalmic suspension Instill 1 drop into left eye 4 times daily 15 mL 02/14/2019 Active nepafenac (NEVANAC) 0.1 % ophth suspension Instill 1 drop into left eye 4 times daily 3 mL 02/14/2019 Active tobramycin (TOBREX) 0.3 % ophthalmic solution Instill 1 drop into left eye 4 times daily 5 mL 02/14/2019 Active Active Problems Problem Noted Date Diagnosed Date Pre-op evaluation Family History Medical History Relation Name Comments Cancer - Pancreatic Brother CAD (Coronary Artery Disease) Father Cancer - Other Maternal Grandfather Cancer - Other Maternal Grandmother CAD (Coronary Artery Disease) Mother Cancer - Bladder Paternal Grandfather Cancer - Other Paternal Grandfather Phlebitis/Blood Clot Paternal Grandmother CAD (Coronary Artery Disease) Sister Relation Name Status Comments Brother Father Maternal Grandfather Maternal Grandmother Mother Paternal Grandfather Paternal Grandmother Sister Social History Tobacco Use Types Packs/Day Years Used Date Smoking Tobacco: Former Cigarettes Q uit: 07/31/2018 Smokeless Tobacco: Never Alcohol Use Standard Drinks/Week Comments Yes 1 (1 standard drink = 0.6 oz pur e alcohol) Socially Comments No Sex and Gender Information Value Date Recorded Sex Assigned at Not on file 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 Gender Identity Not on file Sexual Orientation Not on file Last Filed Vital Signs Vital Sign Reading Time Taken Comments Blood Pressure 147/65 02/19/2019 12:10 PM CDT Pulse 60 02/19/2019 12:10 PM CDT Temperature 36.4 C (97.6 F) 02/19/2019 12:10 PM CDT Respiratory Rate 20 02/19/2019 12:10 PM CDT Oxygen Saturation 100% 02/19/2019 12:10 PM CDT Inhaled Oxygen Concentration - - Weight 98.1 kg (216 lb 4.3 oz) 02/19/2019 12:10 PM CDT Height 161.3 cm (5' 3.5) 02/19/2019 12:10 PM CD T Body Mass Index 37.71 02/19/2019 12:10 PM CDT Plan of Treatment Health Maintenance Due Date Last Done Comments COLOGUARD (AGES 45-75) - COL ON CA SCREENING 1968 CT COLONOGRAPHY - COLON CA SCREENING 1968 FIT - COLON CA SCREENING 1968 FLEX SIG - COLON CA SCREENING 1968 LIPID TESTING 1968 MAMMOGRAM 1968 Opioid Medication Agreement - Annual 1968 HIV SCREENING 12/09/1983 DTAP/TDAP/TD VACCINES (1 - Tdap) 12/09/1987 HEPATITIS B VACCINE (1 of 3 - 19+ 3-dose series) 12/09/1987 PNEUMOCOCCAL VACCINE 50+ (1 of 1 - PCV) 2018 ZOSTER VACCINE (1 of 2) 2018 COVID-19 VACCINE (1 - 2023-2 5 season) 2023 DEPRESSION SCREENING 04/24/2024 INFLUENZA VACCINE (Season Ended) 2024 COLON MONITORING 01/28/2026 01/29/2016, 01/29/2016 COLONOSCOPY - COLON CA SCREENING 01/28/2026 01/29/2016, 01/29/2016 Colorectal Cancer Screening 01/28/2026 HEPATITIS C SCREENING Completed 10/09/2018 HIB VACCINE Aged Out No longer eligi ble based on patient's age to complete this topic HPV VACCINE Aged Out No longer eligi ble based on patient's age to complete this topic MENINGOCOCCAL (Group B) VACCINE SHARED DECISION-MAKING Aged Out No longer eligible based on patient's age to complete this topic MENINGOCOCCAL GROUPS A/C/Y/W VACCINE Aged Out No longer eligible b ased on patient's age to complete this topic Medical Devices Implanted Type Area Health Coordinator Device Identifier Shelf Expiration Date Model / Serial / Lot Acrysof Iq Toric Astigmatism Iol Implanted:Qty: 1 on 02/14/2019 by Sean Richmond MD at [facility] Left: Eye 07/23/2023 [id number] / [id number] / Description:POWER 25.5 D 3.0 0 CYL Kuldip Cornea Implanted:Qty: 1 on 02/14/2019 by Sean Richmond MD at [facility] Left: Eye [employer] 02/24/2019 BILL ONLY CORNEA / / Procedures Procedure Name Priority Date/Time Associated Diagnosis Comments COLONOSCOPY Routine 01/29/2016 from Last 3 Months or Most Recently Relevant to Health Maintenance Results * COLONOSCOPY (01/29/2016) us Historical Provider GENERIC SURGICAL HISTORY Final Result from Last 3 Months or Most Recently Relevant to Health Maintenance Insurance [place] [address] Care Teams Buffing Machine Tender Relationship Specialty Start Date End Date David Rivers MD [address] [place] [address] PCP - General Internal Medicine 02/27/20 Elvin Alfaro DO [address] [facility] [address] DIV OF [facility] INTERNAL MEDICINE [place], [place] Resident - PCP Internal Medicine 02/27/20
--- OUTSIDE RECORDS SUMMARY | 2024-09-22 02:33 | XMS_ITS | Referral Summary ---
Author Organization [facility] Address [address] [place] [address] Care Team Providers Care Installer Apprentice Name Role Phone Alfredo Og Primary Care Provider [phone] Encounters Date Type Department Care Team Description 07/29/2024 Telephone [facility] ([facility]) - [facility] Minimally Invasive Surgery [address] [place] [address] [facility] 12th Floor, [place] [address] Mark Ch MD Medical Question/Miscellaneous [...] (09/09/2019): Added automatically from request for surgery [id number] RUQ abdominal pain 09/06/2019 Assessment & Plan (09/07/2019 11:13 AM CDT): Presenting with acute on chronic RUQ abdominal pain, nausea, and inability to tolerate PO intake. Symptoms first started 2 years ago and she follows with outpatient GI specialist at [facility] and was diagnosed with bilary dyskinesia [...] 2. Otherwise normal biliary imaging study. - [place] SURGERY to see today. Assessment & Plan (09/06/2019 6:22 AM CDT): Presenting with acute on chronic RUQ abdominal pain, nausea, and inability to tolerate PO intake. Symptoms first started 2 years ago and she follows with outpatient GI specialist at [facility] and was diagnosed with bilary dyskinesia [...] (06/09/2022): Added automatically from request for surgery [id number] BMI 37.0-37.9, adult 02/13/2018 023 Assessment & Plan (09/07/2019 11:11 AM CDT): Follows with [facility] weight management clinic and is being considered for gastric sleeve operation. -MIS called this AM, prob as out pt. 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 Gender Identity Female 05/18/2022 10:51 AM WHEELCHAIR RENTAL CLERK Sexual Orientation Straight 05/18/2022 10 :51 AM WHEELCHAIR RENTAL CLERK Last Filed Vital Signs Vital Sign Reading Time Taken Comments Blood Pressure 151/102 05/10/2023 9:36 AM WHEELCHAIR RENTAL CLERK Pulse 109 05/10/2023 9:36 AM WHEELCHAIR RENTAL CLERK Temperature 36.6 C (97.9 F) 05/10/2023 9:36 AM WHEELCHAIR RENTAL CLERK Respiratory Rate 20 05/02/2023 3:16 AM WHEELCHAIR RENTAL CLERK Oxygen Saturation 97% 05/10/2023 9:36 AM WHEELCHAIR RENTAL CLERK Inhaled Oxygen Concentration - - Weight 112.8 kg (248 lb 9.6 oz) 05/10/2023 9:36 AM WHEELCHAIR RENTAL CLERK Height 160 cm (5' 3) 05/10/2023 9:36 AM WHEELCHAIR RENTAL CLERK Body Mass Index 44.04 05/10/2023 9:36 AM WHEELCHAIR RENTAL CLERK Plan of Treatment Not on file Medical Devices Implanted Type Area Superintendent Mechanical Device Identifier Shelf Expiration Date Model / Serial / Lot [employer] Biological Bariatric Peristrip Non Crosslinked Bovine Pericardium For Endo Sayra Thin [id number] - Sn/A - [id number] Implanted:Qty: 1 on 05/01/2023 by Mark Ch MD at [facility] Other - see comments N/A: Stomach [employer] 08/25/2025 [id number] ATHN / N/A / [id number]- [id number] Description:Staple reinforce ment [employer] Bariatric Peristrip Non Crosslinked Bovine Pericardium For Endo Sayra Thin [id number] - Sn/A - [id number] Implanted:Qty: 1 on 05/01/2023 by Mark Ch MD at [facility] Other - see comments N/A: Stomach [employer] 08/25/2025 [id number] ATHN / N/A / [id number]- [id number] Description:Staple reinforce ment Insurance [place] [address] [facility] Advance Directives For more information, please contact: [phone] * Full Code (Latest Code Status on File) Date Activated Date Inactivated Comments 05/01/2023 12:20 PM 05/02/2023 5:48 PM * Full Code Date Activated Date Inactivated Comments 09/06/2019 6:12 AM 09/07/2019 8:55 PM Care Teams Installer Apprentice Relationship Specialty Start Date End Date Alfredo Og PA [address] [place] [id number] PCP - General Physician Park Maintainer 03/07/24
--- OUTSIDE RECORDS SUMMARY | 2024-09-22 02:33 | XMS_ITS | CONTINUITY OF CARE DOCUMENT ---
Author Name elhamroxana rico Address Unknown Organization [facility] Office Address [address] [facility] [address] [place] [address] Phone [phone] Care Team Providers Care Group Controller Name Role Phone Ubaldo Farias MD Unavailable [phone] DALY ORONA MD Unavailable [phone] DALY ORONA MD Unavailable [phone] PROBLEMS Condition Status Date Provider Notes Obesity active Ubaldo Farias MD Preoperative cardiovascular examination active Ubaldo Farias MD Cardiovascular screening active Ubaldo gerardo MD Family history of CAD active Ubaldo Farias MD Former smoker active Ubaldo Farias MD ENCOUNTERS Date Type Provider Location Encounter Diag nosis - In-person encounter Office Visit Ubaldo Farias MD [place] [facility] ObesityPreoperative cardiovascular examinationCardiovascular screeningFamily history of [...] Payer name Policy type / Coverage type Reading red democrat ID AISHA MEDICAID (2) Medicaid [id number] ADVANCE DIRECTIVES Name Date DISCUSSED - NO DECISION MADE TREATMENT PLAN Date Name Performer [id number],S, Ubaldo Barker ra, [place] [id number],CUbaldo ra, MD [id number],S, Ubaldo Barker ra, [place] [id number],SUbaldo ra, MD Cardiology Ubaldo Dunne Cardiology Ubaldo Dunne Cardiology Ubaldo Dunne Cardiology Ubaldo Dunne
--- OUTSIDE RECORDS SUMMARY | 2024-09-22 02:33 | XMS_ITS | Encounter Summary ---
Author Organization [facility] Health Address [address] [place] [address] Care Team Providers Care Brick Wheeler Name Role Phone Arcelia Manriquez MD Primary Care Provider [phone] Elvin Alfaro DO Primary Care Provider [phone] David Rivers MD Primary Care Provider [phone] Elvin Alfaro DO Unavailable [phone] Encounter Details Date Type Department Care Team (Late st Contact Info) Description 03/28/2019 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 Answer Date of Assessment Author No 02/14/2019 10:50 AM Isis Andrade RN * Is person blind or have serious difficulty seeing? Answer Date of Assessment Author No 02/14/2019 10:50 AM Isis Andrade RN * Does person have serious difficulty walking/climbing stairs? Answer Date of Assessment Author No 02/14/2019 10:50 AM Isis Andrade RN * Does person have difficulty dressing/bathing? Answer Date of Assessment Author No 02/14/2019 10:50 AM Isis Andrade RN * Does person have difficulty doing errands alone? Answer Date of Assessment Author No 02/14/2019 10:50 AM Isis Andrade RN documented as of this encounter Mental Status * Does person have difficulty concentrating/remembering/making decisions? Answer Entry Date Author No 02/14/2019 10:50 AM Isis Andrade RN documented in this encounter Plan of Treatment Not on file documented as of this encounter Visit Diagnoses Not on filedocumented in this encounter Care Teams Brick Wheeler Relationship Specialty Start Date End Date Arcelia Manriquez MD [address] [place] [address] PCP - General Internal Medicine 08/20/18 01/05/20 Elvin Alfaro DO [address] [place] [address] PCP - General 01/06/20 02/26/20 David Rivers MD [address] [place] [address] PCP - General Internal Medicine 02/27/20 Elvin Alfaro DO [address] [place], [place] Resident - PCP Internal Medicine 02/27/20 documented as of this encounter
--- OUTSIDE RECORDS SUMMARY | 2024-09-22 02:33 | XMS_ITS | Clinical Summary ---
Author Organization [facility] Address [address] [place] [address] Care Team Providers Care Teller Head Name Role Phone Alfredo Og Primary Care Provider [phone] Allergies Active Allergy Reactions Criticality Noted Date [...] (09/09/2019): Added automatically from request for surgery [id number] RUQ abdominal pain 09/06/2019 Assessment & Plan (09/07/2019 11:13 AM CDT): Presenting with acute on chronic RUQ abdominal pain, nausea, and inability to tolerate PO intake. Symptoms first started 2 years ago and she follows with outpatient GI specialist at [facility] and was diagnosed with bilary dyskinesia after [...] 2. Otherwise normal biliary imaging study. - SD SURGERY to see today. Assessment & Plan (09/06/2019 6:22 AM CDT): Presenting with acute on chronic RUQ abdominal pain, nausea, and inability to tolerate PO intake. Symptoms first started 2 years ago and she follows with outpatient GI specialist at [facility] and was diagnosed with bilary dyskinesia after [...] (06/09/2022): Added automatically from request for surgery [id number] BMI 37.0-37.9, adult 02/13/2018 04/2 023 Assessment & Plan (09/07/2019 11:11 AM CDT): Follows with [facility] weight management clinic and is being considered for gastric sleeve operation. -MIS called this AM, prob as out pt. 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 Gender Identity Female 05/18/2022 10:51 AM PROFESSOR OF MUSICOLOGY Sexual Orientation Straight 05/18/2022 10 :51 AM PROFESSOR OF MUSICOLOGY Obstetrics History Last Filed Vital Signs Vital Sign Reading Time Taken Comments Blood Pressure 151/102 05/10/2023 9:36 AM PROFESSOR OF MUSICOLOGY Pulse 109 05/10/2023 9:36 AM PROFESSOR OF MUSICOLOGY Temperature 36.6 C (97.9 F) 05/10/2023 9:36 AM PROFESSOR OF MUSICOLOGY Respiratory Rate 20 05/02/2023 3:16 AM PROFESSOR OF MUSICOLOGY Oxygen Saturation 97% 05/10/2023 9:36 AM PROFESSOR OF MUSICOLOGY Inhaled Oxygen Concentration - - Weight 112.8 kg (248 lb 9.6 oz) 05/10/2023 9:36 AM PROFESSOR OF MUSICOLOGY Height 160 cm (5' 3) 05/10/2023 9:36 AM PROFESSOR OF MUSICOLOGY Body Mass Index 44.04 05/10/2023 9:36 AM PROFESSOR OF MUSICOLOGY Plan of Treatment Health Maintenance Due Date [...] Completed 09/06/2019 Medical Devices Implanted Type Area Airplane Pilot Supervisor Device Identifier Shelf Expiration Date Model / Serial / Lot [employer] Biological Bariatric Peristrip Non Crosslinked Bovine Pericardium For Endo Sayra Thin [id number] - Sn/A - [id number] Implanted:Qty: 1 on 05/01/2023 by Mark Ch MD at [facility] Other - see comments N/A: Stomach [employer] 08/25/2025 [id number] ATHN / N/A / [id number] Description:Staple reinforce ment [employer] Bariatric Peristrip Non Crosslinked Bovine Pericardium For Endo Sayra Thin [id number] - Sn/A - [id number] Implanted:Qty: 1 on 05/01/2023 by Mark Ch MD at [facility] Other - see comments N/A: Stomach [employer] 08/25/2025 [id number] ATHN / N/A / [id number] Description:Staple reinforce ment Insurance [facility] Advance Directives For more information, please contact: [phone] * Full Code (Latest Code Status on File) Date Activated Date Inactivated Comments 05/01/2023 12:20 PM 05/02/2023 5:48 PM * Full Code Date Activated Date Inactivated Comments 09/06/2019 6:12 AM 09/07/2019 8:55 PM Care Teams Teller Head Relationship Specialty Start Date End Date Alfredo Og PA [address] [place] [address] PCP - General Physician Senior Account Manager 03/07/24
--- OUTSIDE RECORDS SUMMARY | 2024-09-22 02:33 | XMS_ITS | Encounter Summary ---
Author Organization [facility] Health Address [address] [place] [address] Care Team Providers Care Ground Crew Linesman Name Role Phone Arcelia Manriquez MD Primary Care Provider [phone] Elvin Alfaro DO Primary Care Provider David Rivers MD Primary Care Provider [phone] Elvin Alfaro DO Unavailable [phone] Reason for Visit * Reason Onset Date Comments Follow-up 02/21/2019 Encounter Details Date Type Department Care Team (Late st Contact Info) Description 02/21/2019 Telephone [facility] 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 Answer Date of Assessment Author No 02/14/2019 10:50 AM MARK ANTHONYT Isis Loera RN * Is person blind or have [...] on filedocumented in this encounter Care Teams Ground Crew Linesman Relationship Specialty Start Date End Date Arcelia Manriquez MD [address] [place] [address] PCP - General Internal Medicine 08/20/18 01/05/20 Elvin Alfaro DO [address] [place] [address] PCP - General 01/06/20 02/26/20 David Rivers MD [address] [facility] [place] [address] PCP - General Internal Medicine 02/27/20 Elvin Alfaro DO [address] [facility] [place], [place] Resident - PCP Internal Medicine 02/27/20 documented as of this encounter
--- OUTSIDE RECORDS SUMMARY | 2024-09-22 02:33 | XMS_ITS | Continuity of Care Document ---
Author Organization [facility] Address [address] [place] [address] Phone Care Team Providers Care Unified Communications Architect Name Role Phone Dale Carrillo MD, FACS Unavailable Unavailab le Procedures Procedure Date Office/outpatient Visit, Est Corneal Pachymetry Corneal Topography Eye Exam & Treatment Refraction Eye Exam, New Patient Advance Directives Directive Yes / No Effective Date File Name No Information Encounters Encounter Description Practice Location Reason(s) For Visit Diagnoses Date Provider Providers Copied on Encounter Office/outpat ient Visit, Est formerly [facility], [address] [place] [address] [address], [place], [place], [id number], [place] tel:[phone] SEC Kelsey Berrios No Information 0 Gerardo Hunter. [address] [place] [address], [facility] [address], [place], [place], [id number], [place]. tel:[phone] Referring Provider: Nico Martin OD [place], [facility] [address], [place], [address]. tel:[phone] formerly [facility], [address] [place] [address] [address], [place], [place], [id number], [place] tel:[phone] SEC [facility] No Information 0 Martin OD Ncio. [address], [place], [address], [place]. tel:[phone] formerly [facility], [address] [place] [address] [address], [place], [place], [id number], [place] tel:[phone] [facility] No Information [phone] Martin OD Nico. [address] [facility] , [address], [place], [address], [place]. tel:[phone] Family History Family Member Type Diagnosis Age At Onset No Information Payers Payer name Insurance type Covered constitution party ID Jluis moseley(s) Medicaid [facility] [id number] Social History Type Description Quantity Date Captured [...]
--- NOTE | 2024-09-22 03:01 | PC.NURSE ---
patient and patient visitors at bedside stating they are upset about the wait time and do not understand why no one has seen the patient. this rn attempted to explain the process and was caught off and asked about nightly medications for the patient. this rn attempted to explain to the patient again about the process of being seen. pt stated that she has been here for hours and feels like no one is here to see her.
--- NOTE | 2024-09-22 03:15 | ED_ITS ---
HPI - Chest Pain General Chief Complaint: Chest Pain Stated Complaint: Midsternal CP x 2 days Time Seen by Provider: 09/22/24 02:21 History of Present Illness HPI narrative: 53-year-old female with history of anxiety and obesity status post gastric bypass 2 years ago. Patient presents the emergency department with sternal pain. She states that she was moving her sister out of her house and using her [employer] truck with having to do most liver herself. She states that she has been having pain in her sternum for 2 days. Hurts with movement and certain breathing. Denies any nausea, vomiting, did indigestion symptoms, back pain, fever, chills, retrosternal chest pain. No trauma or injury. She was otherwise in her normal state of health. No history of recent procedures, no leg swelling or DVT/PE risk factors. Related Data Home Medications ?Medication ?Instructions ?Recorded ?Confirmed ?Last Taken ?Type clonazepam 1 mg tablet (Klonopin) 1 mg PO DAILY 05/02/19 Unknown History risperidone 1 mg tablet (Risperdal) 1 mg PO DAILY 05/02/19 Unknown History Allergies Allergy/AdvReac Type Severity Reaction Status Date / Time meperidine Allergy Severe Anaphylaxis Verified 09/22/24 01:28 Penicillins Allergy Severe Anaphylactic Verified 09/22/24 01:28 Shock azithromycin Allergy Unknown Anaphylactic Verified 09/22/24 01:28 Shock Review of Systems 2 Review of Systems: [facility] Past Medical History Medical History Abdominal pain Anxiety Obesity Helicobacter pylori (H. pylori) infection Exam 2 Narrative: GENERAL: [Well-appearing, well-nourished, and in no acute distress.] HEAD: [Normocephalic, atraumatic.] EYES: [PERRLA and EOMI.] ENT: Nares clear, no rhinorrhea or epistaxis. Mucous membranes moist. NECK: Supple. CHEST: [Clear to auscultation. No respiratory distress.] Reproducible sternal pain to palpation, no step-offs deformities or crepitus. HEART: [Regular rate and rhythm]. No murmur heard. [Normal peripheral pulses.] ABDOMEN: [Soft, nondistended], [nontender], [No rigidity or guarding] EXTREMITIES: Normal range of motion. [No edema.] SKIN: Warm, dry, no rash. NEURO: [No focal deficits]. Alert and oriented [x3.] PSYCH: [Normal mood and affect.] Course Vital Signs Vital signs: Vital Signs Temperature 36.7 C 09/21/24 21:05 Pulse Rate 99 09/21/24 21:05 Respiratory Rate 18 09/21/24 21:05 Blood Pressure 142/76 H 09/21/24 21:05 Pulse Oximetry 97 09/21/24 21:05 Temperature 36.4 C L 09/21/24 23:54 Pulse Rate 98 09/22/24 02:11 Respiratory Rate 16 09/22/24 02:11 Blood Pressure 120/60 09/22/24 02:11 Pulse Oximetry 98 09/22/24 02:11 Oxygen Delivery Room Air 09/22/24 02:11 MDM - Chest Pain MDM Narrative Medical decision making narrative: 53-year-old female with history anxiety and previous gastric bypass. Patient presents with 2 days of sternal pain after moving her sister into a new home. She unloaded entire you all by herself and states she has been doing a lot of repetitive exercise in feels like this is related. No trauma or injury. She has reproducible sternal pain with palpation but no overlying skin changes. No breath asymmetry or difficulty breathing. She has strong symmetric pulses, no signs of DVT or PE. She is obese in given her age and risk factors a cardiac workup was ordered this time including serial troponins, EKG, chest x-ray, CBC, CMP, lipase. She was given topical diclofenac and Robaxin orally for analgesia and symptom control of her likely musculoskeletal chest pain but will evaluate for other causes such as ACS, pneumonia, pneumothorax, bronchitis, less likely thromboembolic event and she meets low Wells criteria. Workup reveals no leukocytosis or anemia. Initial and serial troponin are negative. Negative lipase, unremarkable renal function, normal glucose. Normal LFTs. Chest x-ray shows no acute cardiopulmonary process. EKGs are sinus rhythm without any ectopy or ischemic concerns. Patient had improvement in pain control and safe for discharge home at this time with return precautions. Medical Records Data Attestation: I reviewed the patient's medical records. Lab Data Attestation: I reviewed the patient's lab results. 09/21/24 21:16 05/31/25 21:16 Labs: Lab Results 09/21/24 09/22/24 Range/Units 21:16 00:02 WBC 8.5 (4.5-10.0) K/mm3 RBC 3.94 L (4.2-5.4) M/mm3 Hgb 12.2 (12.0-15.0) g/dL Hct 37.6 (37.0-47.0) % MCV 95.4 (80-100) fl MCH 31.0 (26-34) pg MCHC 32.4 (32-36) g/dl RDW 13.1 (11.5-14.5) % Plt Count 344 (150-375) k/mm3 MPV 10.1 (7.4-10.4) fl Immature Gran % (Auto) 0.2 (0-0.5) % Neut % (Auto) 49.3 (45.5-73.1) % Lymph % (Auto) 36.9 (18.3-44.2) % [place] % (Auto) 6.3 (2.6-8.5) % Eos % (Auto) 6.4 H (0-4.4) % Baso % (Auto) 0.9 (0.2-1.2) % Lymph # (Auto) 3.15 (0.9-3.2) K/mm3 [place] # (Auto) 0.5 (0.1-0.6) K/mm3 Eos # (Auto) 0.6 H (0-0.3) K/mm3 Baso # (Auto) 0.1 (0.0-0.1) K/mm3 Abs Immat Gran (auto) 0.02 (0.00-0.031) K/mm3 Absolute Neuts (auto) 4.2 (1.3-6.7) K/mm3 Absolute Nucleated RBC 0.000 (0.0-0.012) K/mm3 Nucleated RBC % 0.0 (0.0-0.2) % PT 13.0 (11.1-14.7) Seconds INR 1.0 APTT 22.3 (22.3-36.8) Seconds Sodium 142 (137-145) mmol/L Potassium 3.7 (3.4-5.0) mmol/L Chloride 108 H (98-107) mmol/L Carbon Dioxide 27 (22-30) mmol/L Anion Gap 7 (4-12) mmol/L BUN 23 H (7-17) mg/dL Creatinine 0.63 L (0.7-1.0) mg/dL Estim Creat Clear Calc 87 ml/min Estimated GFR > 60 (59 - ) Glucose 70 (65-110) mg/dL Calcium 9.1 (8.4-10.2) mg/dL Total Bilirubin 0.3 (0.2-1.3) mg/dL AST 31 (14-36) U/L ALT 26 (6-35) U/L Alkaline Phosphatase 96 (38-126) U/L Troponin I < 0.012 < 0.012 (0.000-0.034) ng/mL Total Protein 7.0 (6.3-8.2) g/dL Albumin 4.2 (3.5-5.1) g/dL Lipase 100 (23-300) U/L Imaging Data Attestation: I personally reviewed and interpreted this imaging study as follows: My impression: Impressions Chest X-Ray 09/21/24 21:44 IMPRESSION: No acute cardiopulmonary pathology. ECG Data EKG #1: Attestation: I personally reviewed and interpreted this ECG as follows: ECG completion date: 09/22/24 ECG completion time: 21:11 Prior ECG tracings: not available for review Interpretation: No ST segment elevations, depressions or inversions. No ectopy. QTC 421, QRS 78, NE interval 172. Rate of 80 beats per minute. No previous EKG for comparison. interpretation is normal sinus rhythm. Discharge Plan Discharge Clinical Impression: Chest pain, Sternal pain Patient Disposition: Home Condition: Stable Instructions: Antibiotic Form, Chest Pain (ED), Chest Wall Pain (ED) Additional Instructions: Your cardiac enzymes are undetectable. Your x-rays reassuring. Your symptoms are consistent with musculoskeletal chest pain secondary to repetitive motions and overuse injury. We will send you home with some pain control medications and symptom control medications. Follow-up with regular doctor. Return with any emergencies. Patient Language: Paraguayan Prescriptions: New diclofenac sodium 1 % gel 2 g topical QID Qty: 50 0RF Rx Instructions: apply to single elbow, wrist or hand; for hand includes palm/fingers/back of hand methocarbamol 750 mg tablet 750 mg PO TID PRN (Reason: pain) Qty: 20 0RF lidocaine 5 % adhesive patch,medicated 1 patch topical DAILY Qty: 15 0RF Rx Instructions: leave on most painful area for up to 12 hrs No Action risperidone [Risperdal] 1 mg tablet 1 mg PO DAILY clonazepam [Klonopin] 1 mg tablet 1 mg PO DAILY omeprazole 40 mg capsule,delayed release(DR/EC) 40 mg PO DAILY Qty: 14 0RF Follow-up/Referrals: Earle,JAILENE Guadalupe [Primary Care Provider] - Time of Disposition: 03:22 Quality HEART score for chest pain patients History: slightly suspicious ECG: normal Age: > 45 and < 65 years Risk factors: no risk factors known Troponin: < or = to 1x normal limit Heart score: 1
[2024-09-22] MEDS: DICLOFENAC SODIUM 1% 100 GM GEL (*BKC) 1 APPLIC TOPICAL (03:42)
[2024-09-22] MEDS: methocarbamoL 750 MG TABLET 1500 MG PO (03:42)
== END 2024-09-22 03:52 | disposition home or self-care (01) ==
PROVIDERS: Emergency Provider Student in an Organized Health Care Education/Training Program; PCP Physician Assistant Medical
DX: R07.89 Other chest pain (principal); F41.9 Anxiety disorder, unspecified; Z98.84 Bariatric surgery status
CPT/HCPCS: 36415; 71046; 80053; 83690; 84484; 85025; 85610; 85730; 93005; 99284; A9270